=== PATIENT | male | born 1935 | race Two or more races ===

== ENCOUNTER 2018-06-08 17:09 | Inpatient (IN) | payer MEDICARE, OTHER ==
[~2018-06-08] VITALS: Ht 172.7 cm; Wt 69.0 kg
[2018-06-08 17:15] VITALS: BP 89/46
--- NOTE | 2018-06-08 17:15 | NUR ---
ED Nurse Note: PT BROUGHT IN BY AMBULANCE FROM [facility] DUE TO INCREASING ALOC X TODAY. PT IS AOX2 - ORIENTED TO SELF AND PLACE BUT IS NOT ORIENTED TO TIME OR SITUATION. THIS IS BASELINE PER EMS. ON ASSESSMENT, PT IS HYPOTENSIVE, BP: 74/48 AND HYPOXIC, O2 SAT: 88%. PT PLACED ON 3L O2 VIA NASAL CANNULA AND PLACED IN TRENDELENBERG POSITION. DR ZHOU AWARE. RR22 @ 94% O2 SATURATION AND BP: 89/46.
[2018-06-08] MEDS ORDERED: Sodium Chloride 2,200 ML IVLG ONE (17:30)
--- NOTE | 2018-06-08 17:50 | Emergency Room Report ---
History of Present Illness General Chief Complaint: Altered Mental Status Source: Patient, Medical Record Present Illness HPI Patient presents from nursing facility with general weakness altered mentation It is unclear the specific time onset of this change Patient does have recent discharge from recent hospitalization I spoke to the patient's primary physician who reports the patient's hemoglobin was low previously however the patient had fairly extensive GI workup Patient himself is able to be aroused opens his eyes Does appear mildly weak With sluggish response Denies any focal weakness Allergies: Coded Allergies: PHENOTHIAZINES (Verified Allergy, Unknown, lock jaw anxiety, 06/09/18) Patient History Limited by: medical condition Past Medical History: see triage record Pertinent Family History: none Reviewed Nursing Documentation: PMH: Agreed; PSxH: Agreed Nursing Documentation-PMH Past Medical History: No History, Except For Hx Gastrointestinal Problems: Yes - gastritis History Of Psychiatric Problem: Yes - Schziophrenia Review of Systems All Other Systems: negative except mentioned in HPI Physical Exam Vital Signs Date Time Temp Pulse Resp B/P (MAP) Pulse Ox O2 Delivery O2 Flow Rate FiO2 06/08/18 17:10 99.1 94 18 74/48 94 Room Air Sp02 EP Interpretation: reviewed, normal General Appearance: other - Pale Head: normocephalic, atraumatic Eyes: bilateral eye PERRL, bilateral eye EOMI ENT: hearing grossly normal, TMs + canals normal, uvula midline, dry mucus membranes Neck: full range of motion, supple, no meningismus, no bony tend Respiratory: no rhonchi, no respiratory distress, no retraction, no accessory muscle use, crackles - Bilaterally Cardiovascular #1: normal peripheral pulses, regular rate, rhythm, no edema, no gallop, no JVD, no murmur Gastrointestinal: normal bowel sounds, non tender, soft, no mass, no organomegaly, non-distended, no guarding, no hernia, no pulsatile mass, no rebound Genitourinary: no CVA tenderness Musculoskeletal: normal inspection Neurologic: responsive - Mild disorientation, art handler III-XII nml as tested, motor strength/tone normal, sensory intact Psychiatric: depressed affect Skin: warm/dry, palpation normal, other - Several areas of bruising in the upper arm Lymphatic: normal inspection, no adenopathy Procedures Critical Care Time Critical Care Time 50 minutes for multiple re-evaluations initial critical status hypotensive presentation requiring repeat evaluation not including any procedural time Medical Decision Making Diagnostic Impression: Primary Impression: Sepsis Additional Impression: Altered mental status ER Course Multiple differentials and consideration Patient presents somewhat altered and hypotensive on initial presentation Broad-spectrum blood work and workup is initiated Speaking to the patient's primary physician who is here in the emergency room as well Patient has had fairly extensive recent workup Hemoccult exam by primary was also negative Patient also given prostration antibiotics given the white blood cell count Consideration for colitis/C. difficile is made, however we do not have any history of diarrhea Bowel ischemia is considered Patient admitted to higher level of care for continued evaluation Labs Test 06/08/18 18:05 06/08/18 20:15 White Blood Count 30.1 K/UL (4.8-10.8) Red Blood Count 3.08 M/UL (4.70-6.10) Hemoglobin 7.8 G/DL (14.2-18.0) Hematocrit 25.1 % (42.0-52.0) Mean Corpuscular Volume 82 FL (80-99) Mean Corpuscular Hemoglobin 25.4 PG (27.0-31.0) Mean Corpuscular Hemoglobin Concent 31.1 G/DL (32.0-36.0) Red Cell Distribution Width 16.6 % (11.6-14.8) Platelet Count 572 K/UL (150-450) Mean Platelet Volume 5.0 FL (6.5-10.1) Neutrophils (%) (Auto) % (45.0-75.0) Lymphocytes (%) (Auto) % (20.0-45.0) Monocytes (%) (Auto) % (1.0-10.0) Eosinophils (%) (Auto) % (0.0-3.0) Basophils (%) (Auto) % (0.0-2.0) Differential Total Cells Counted 100 Neutrophils % (Manual) 89 % (45-75) Lymphocytes % (Manual) 6 % (20-45) Monocytes % (Manual) 5 % (1-10) Eosinophils % (Manual) 0 % (0-3) Basophils % (Manual) 0 % (0-2) Band Neutrophils 0 % (0-8) Platelet Estimate Increased Platelet Morphology Normal Hypochromasia 2+ Anisocytosis 2+ Prothrombin Time 12.0 SEC (9.30-11.50) Prothromb Time International Ratio 1.1 (0.9-1.1) Urine Color Yellow Urine Appearance Clear Urine pH 6 (4.5-8.0) Urine Specific [place] 1.010 (1.005-1.035) Urine Protein 2+ (NEGATIVE) Urine Glucose (UA) Negative (NEGATIVE) Urine Ketones Negative (NEGATIVE) Urine Blood 1+ (NEGATIVE) Urine Nitrite Negative (NEGATIVE) Urine Bilirubin Negative (NEGATIVE) Urine Urobilinogen Normal MG/DL (0.0-1.0) Urine Leukocyte Esterase 1+ (NEGATIVE) Urine RBC 2-4 /HPF (0 - 0) Urine WBC 2-4 /HPF (0 - 0) Urine Squamous Epithelial Cells None /LPF (NONE/OCC) Urine Bacteria Few /HPF (NONE) Sodium Level 134 MMOL/L (136-145) Potassium Level 4.3 MMOL/L (3.5-5.1) Chloride Level 98 MMOL/L (98-107) Carbon Dioxide Level 23 MMOL/L (21-32) Anion Gap 13 mmol/L (5-15) Blood Urea Nitrogen 19 mg/dL (7-18) Creatinine 1.8 MG/DL (0.55-1.30) Estimat Glomerular Filtration Rate mL/min (>60) Glucose Level 106 MG/DL (74-106) Lactic Acid Level 3.30 mmol/L (0.4-2.0) 0.90 mmol/L (0.66-2.22) Calcium Level 9.1 MG/DL (8.5-10.1) Total Bilirubin 0.8 MG/DL (0.2-1.0) Aspartate Amino Transf (AST/SGOT) 99 U/L (15-37) Alanine Aminotransferase (ALT/SGPT) 109 U/L (12-78) Alkaline Phosphatase 164 U/L (46-116) Total Creatine Kinase 123 U/L (26-308) Creatine Kinase MB 2.0 NG/ML (0.0-3.6) Creatine Kinase MB Relative Index 1.6 Troponin I 0.003 ng/mL (0.000-0.056) Pro-B-Type Natriuretic Peptide 1942 pg/mL (0-125) Total Protein 7.3 G/DL (6.4-8.2) Albumin 2.1 G/DL (3.4-5.0) Globulin 5.2 g/dL Albumin/Globulin Ratio 0.4 (1.0-2.7) Lipase 76 U/L (73-393) EKG Diagnostic Results Rate: normal Rhythm: NSR ST Segments: no acute changes Rhythm Strip Diag. Results EP Interpretation: yes Rate: 80 Rhythm: NSR, no PVC's, no ectopy Chest X-Ray Diagnostic Results Chest X-Ray Diagnostic Results : Chest X-Ray Ordered: Yes # of Views/Limited/Complete: 1 View Indication: Shortness of Breath EP Interpretation: Yes Interpretation: no effusion, no pneumothorax, other - Right lower lobe patchy markings Impression: Other - Right lower lobe patchy markings Electronically Signed by: Elsi Luna DO CT/MRI/US Diagnostic Results CT/MRI/US Diagnostic Results : Impression CT head no acute disease Last Vital Signs Date Time Temp Pulse Resp B/P (MAP) Pulse Ox O2 Delivery O2 Flow Rate FiO2 06/08/18 17:10 99.1 94 18 74/48 94 Room Air Status: improved Disposition: ADMITTED INPATIENT Condition: Critical Elsi Luna DO Jun 08, 2018 17:50
--- NOTE | 2018-06-08 18:07 | Diagnostic Imaging Report ---
EXAM: XR Chest, 1 View CLINICAL HISTORY: CP TECHNIQUE: Frontal view of the chest. COMPARISON: No relevant prior studies available. FINDINGS: Lungs: Reduced lung volumes with large cardiomediastinal silhouette and accentuation of bronchovascular markings. Patchy nodular opacities in the right upper and left lower lung colby. Pleural space: Unremarkable. No pneumothorax. Heart: See above. Mediastinum: See above. Bones/joints: No acute fracture. IMPRESSION: Reduced lung volumes with large cardiomediastinal silhouette and accentuation of bronchovascular markings. Patchy nodular opacities in the right upper and left lower lung colby.
[2018-06-08 18:15] VITALS: BP 102/65
[2018-06-08 18:30] LABS: ANION GAP 13 mmol/L (5-15); BLOOD UREA NITROGEN 19 mg/dL (7-18); CALCIUM 9.1 MG/DL (8.5-10.1); CARBON DIOXIDE 23 MMOL/L (21-32); CHLORIDE 98 MMOL/L (98-107); CREATININE 1.8 MG/DL (0.55-1.30); POTASSIUM 4.3 MMOL/L (3.5-5.1); SODIUM 134 MMOL/L (136-145)
[2018-06-08 18:35] LABS: APPEARANCE,URINE CLEAR; BILIRUBIN, URINE NEGATIVE (NEGATIVE); GLUCOSE, URINE (UA) NEGATIVE (NEGATIVE); KETONES,URINE NEGATIVE (NEGATIVE); LEUKOCYTE ESTERASE ,URINE 1+ (NEGATIVE); NITRITE,URINE NEGATIVE (NEGATIVE); PH,URINE 6 (4.5-8.0); PROTEIN,URINE 2+ (NEGATIVE); UROBILINOGEN,URINE NORMAL MG/DL (0.0-1.0)
[2018-06-08 18:42] LABS: ALANINE AMINOTRANSFERASE 109 U/L (12-78); ALBUMIN 2.1 G/DL (3.4-5.0); ALBUMIN/GLOBULIN RATIO 0.4 (1.0-2.7); ALKALINE PHOSPHATASE 164 U/L (46-116); ASPARTATE AMINO TRANSFERASE 99 U/L (15-37); BILIRUBIN,TOTAL 0.8 MG/DL (0.2-1.0); COLOR,URINE YELLOW; CREATINE KINASE 123 U/L (26-308)
[2018-06-08 18:45] LABS: HEMATOCRIT 25.1 % (42.0-52.0); HEMOGLOBIN 7.8 G/DL (14.2-18.0); MEAN CORPUSCULAR VOLUME 82 FL (80-99); PLATELET COUNT 572 K/UL (150-450); RED BLOOD COUNT 3.08 M/UL (4.70-6.10); RED CELL DISTRIBUTION WIDTH 16.6 % (11.6-14.8)
[2018-06-08 18:49] LABS: WHITE BLOOD COUNT 30.1 K/UL (4.8-10.8)
--- NOTE | 2018-06-08 18:54 | Diagnostic Imaging Report ---
EXAM: CT Head Without Intravenous Contrast CLINICAL HISTORY: AMS TECHNIQUE: Axial computed tomography images of the head/brain without intravenous contrast. CTDI is 70.38+0.15 mGy and DLP is 1495 mGy-cm. One or more of the following dose reduction techniques were used: automated exposure control, adjustment of the mA and/or kV according to patient size, use of iterative reconstruction technique. COMPARISON: No relevant prior studies available. FINDINGS: Brain: No hemorrhage. No edema. Involutional changes with small vessel disease. Ventricles: No ventriculomegaly. Bones/joints: No acute fracture. Soft tissues: Unremarkable. Sinuses: No acute sinusitis. Mastoid air cells: No mastoid effusion. Cataract surgery. IMPRESSION: No acute intracranial process.
[2018-06-08] MEDS ORDERED: Vancomycin 1.5gm Premix 275 ML IVPB ONE (19:00)
[2018-06-08] MEDS ORDERED: Piperacillin/Tazobactam 3.375 GM in NS 110 ML IVPB ONE (19:00)
[2018-06-08] MEDS ORDERED: Vancomycin 1.5gm/D5W 275ml IVPB ONE ×2 (19:00)
[2018-06-08 19:11] LABS: INR 1.1 (0.9-1.1)
--- NOTE | 2018-06-08 19:12 | NUR ---
ED Nurse Note: REPORT GIVEN TO JODI DALLAS. ABDIAZIZ PULLED FROM [facility] AND ENDORSED TO JODI DALLAS.
[2018-06-08 20:32] VITALS: BP 95/59
[2018-06-08] MEDS ORDERED: Acetaminophen 650 MG SUPP RECTAL PRN ×2 (21:15)
[2018-06-08] MEDS ORDERED: Miralax 17gm pkt ORAL PRN (21:15)
[2018-06-08 21:18] VITALS: BP 114/65
[2018-06-08] MEDS: ZyPREXA Zydis 10mg tab ORAL SCH (21:30)
[2018-06-09] VITALS (19 sets, daily range): BP systolic 95–134; BP diastolic 56–84
[2018-06-09] MEDS ORDERED: TRIAMCINOLONE A15 G2 TP (02:48)
[2018-06-09] MEDS ORDERED: SINGULAIR10 MG ORAL (02:48)
[2018-06-09] MEDS ORDERED: ATORVASTATIN CA80 MG ORAL (02:48)
[2018-06-09] MEDS ORDERED: OMEPRAZOLE40 M1 ORAL (02:48)
[2018-06-09] MEDS ORDERED: FLUOXETINE HCL40 MG ORAL (02:48)
[2018-06-09] MEDS ORDERED: ZYPREXA10 MG ORAL (02:48)
[2018-06-09] MEDS ORDERED: CLOTRIMAZOLE15 GM TOPIC (02:48)
[2018-06-09] MEDS ORDERED: MINTOX SUSPENS355 ML PO (02:48)
[2018-06-09] MEDS ORDERED: VENLAFAXINE HCL75 MG ORAL (02:48)
[2018-06-09] MEDS ORDERED: DAILY VITE1 EACH ORAL (02:48)
[2018-06-09] MEDS ORDERED: GABAPENTIN100 MG ORAL (02:48)
[2018-06-09] MEDS ORDERED: VENLAFAXINE HC150 MG ORAL (02:48)
[2018-06-09] MEDS ORDERED: MIRTAZAPINE15 M3 ORAL (02:48)
[2018-06-09] MEDS ORDERED: DOCUSATE SODIU250 MG ORAL (02:48)
[2018-06-09] MEDS ORDERED: BANOPHEN25 MG PO (02:48)
[2018-06-09] MEDS ORDERED: ACETAMINOPHEN325 M1 ORAL (02:48)
[2018-06-09] MEDS ORDERED: BUSPIRONE HCL15 MG ORAL (02:48)
[2018-06-09] MEDS ORDERED: TUSSIN DM CLEA118 M1 PO (02:48)
--- NOTE | 2018-06-09 03:45 | NUR ---
ED Nurse Note: pt was admitted to hospital, pt transfered to icu 246 J, report given to Erich muñoz, pt transfered with monitor via tex on a stable vs.
[2018-06-09] MEDS: D5 1/2NS w/KCl 20mEq 1,000 ML IV SCH ×6 (03:53→22:09)
--- NOTE | 2018-06-09 04:00 | NUR ---
NURSE NOTES: Received report from [facility] ED RN. Patient is alert and oriented but forgetful at time. Patient is hard of hearing both hears. Patient noted to have R and L 20G AC IV lines. D51/2 NS was hung per orders at 175ml/hr. Patient noted to have scab on right knee from previous fall as patient stated. Patient is able to self reposition. HR is 78 Sr, 134/68, SpO2 at 97%, on NC 2L, RR 16. temperature 98.4F. NAD at this time. Condom catheter placed.
--- NOTE | 2018-06-09 05:00 | NUR ---
NURSE NOTES: Patient in bed, remains sleeping, vitals are stable, bed in lowest position and call light within reach.
--- NOTE | 2018-06-09 05:00 | Consultation ---
DATE OF CONSULTATION: 06/08/2018 CARDIOLOGY CONSULTATION CONSULTING PHYSICIAN: Fer Hernandez M.D. REQUESTING PHYSICIAN: Terry Short M.D. REASON FOR CONSULTATION: Shock. HISTORY OF PRESENT ILLNESS: This is an 83-year-old male, who resides at a correction facility and was transported here for evaluation of altered mentation, described as general malaise, weakness, and withdrawn state. The patient was recently hospitalized. He apparently has been recovering at a correction facility. He recently had a GI workup for anemia. He has not had any complaints of chest pain, shortness of breath, nausea, vomiting, diarrhea, fevers, or chills. PAST MEDICAL HISTORY: Apparently includes gastritis, schizophrenia, and anemia. ALLERGIES: None. FAMILY HISTORY: Not known. SOCIAL HISTORY: No record of smoking, alcohol, or substance abuse. MEDICATIONS: Reviewed and reconciled. REVIEW OF SYSTEMS: Not obtainable. PHYSICAL EXAMINATION: VITAL SIGNS: Temperature 99.1, blood pressure 74/48, heart rate 94, respiratory rate 18, and oxygen saturation 94% on room air. HEENT: Mild temporal wasting. Dry mucous membranes. NECK: Supple. Jugular venous pressure normal. No accessory muscle use. LUNGS: Clear. CARDIAC: Regular rhythm and rate. Normal S1 and S2 with a fourth heart sound. ABDOMEN: Soft. No focal tenderness, guarding, or rebound. No ascites. EXTREMITIES: No clubbing or cyanosis. No edema. There is some bruising on the upper extremities. NEUROLOGIC: Nonfocal. LABORATORY DATA: Sodium 134, potassium 4.3, bicarbonate 23, BUN 19, and creatinine 1.8. Lactic acid 3.3. AST and ALT 99 and 109 respectively and alkaline phosphatase 164. Pro-natriuretic peptide 1942. Albumin 2.1. White count is 30, hemoglobin 7.8, and platelets 572,000. EKG reviewed, sinus rhythm with no acute ST-T wave changes. Chest x-ray reveals nodular densities. No edema. IMPRESSION: 1. Shock. 2. Sepsis. 3. Hypovolemia. 4. Lactic acidosis 5. Anemia. 6. Severe leukocytosis. 7. Elevated troponin level likely reflecting right-sided filling pressures that are elevated. 8. Probable pneumonia. 9. Transaminitis. 10. Possible acute hepatobiliary process. CONDITION: Critical. PROGNOSIS: Guarded. PLAN: 1. ICU care. 2. Volume resuscitation. 3. Broad-spectrum antibiotics. 4. Serial lactic acid levels. 5. No diuresis indicated. 6. Check cortisol and thyroid function. 7. Serial hemoglobin, transfuse if less than 7.5 g. 8. Imaging of the hepatobiliary tract. 9. NPO for now. 10. Avoid pressors unless fails to respond to volume resuscitation with IV fluids. 11. DVT and stress ulcer prophylaxis. Fer Hernandez M.D. DR: KRISTOFER JOB#: [id number] CC:
--- NOTE | 2018-06-09 05:15 | History and Physical Report ---
DATE OF ADMISSION: 06/08/2018 NOTE: "POOR AUDIO QUALITY" CHIEF COMPLAINT AND REASON FOR HOSPITALIZATION: The patient is an 83-year-old man, admitted with hypotension, possible septic shock. HISTORY OF PRESENT ILLNESS: The patient is an 83-year-old gentleman with history of schizophrenia. He was hospitalized from 05/28/2018 through 06/05/2018 at [facility], found to have UTI and E. coli bacteremia sensitive to most antibiotics. He received a course of antibiotics in the hospital and was discharged back to his assisted living facility with Keflex. 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 He had iron-deficiency anemia and left the hospital with hemoglobin of 8.2. He had prolonged leukocytosis and his white count was about 18,000 when he left [facility], but he was on appropriate antibiotics. There was also a CT scan finding of some ground-glass for pneumonia. The patient had no shortness of breath or productive sputum. He was seen by Physical Therapy at [facility] and was walking with a walker. I was called today that he was feeling weaker and had again fallen without injury and his blood pressure fell to 85 systolic at his assisted living facility and he was sent to the emergency room. On arrival to the emergency room, his blood pressure was approximately 75 systolic. PAST SURGICAL HISTORY: Surgeries for pneumothorax and left ankle fracture years ago. MEDICATIONS: Include Keflex 500 mg 4 times a day, BuSpar 15 mg b.i.d., Daily-Sameer one daily, DSS 250 three times a day, Effexor XR 225 mg daily, fluoxetine 60 mg daily, gabapentin 300 mg 4 times a day, potassium 10 mEq 2 tablets daily, Lipitor 80 mg daily which I believe has been discontinued, montelukast 10 mg daily, olanzapine 10 mg b.i.d. and 20 mg at bedtime, omeprazole 40 mg daily, Remeron 15 mg daily, triamcinolone cream p.r.n., Robitussin p.r.n., and Maalox p.r.n. ALLERGIES: Phenothiazine. HABITS: He smoked many years ago and quit. SYSTEM REVIEW: HEENT: Vision and hearing is good. ENDOCRINE: Borderline glucose intolerance, not requiring medications. No thyroid disease. PULMONARY: There is some COPD and dry cough. CARDIAC: No angina, VA, or palpitations. He had hyperlipidemia in the past, but his statins were discontinued due to elevated liver enzymes. GASTROINTESTINAL: He has had intermittent heartburn and endoscopy as above. Heartburn has been better. He has not had any hematochezia or melena, but he did have iron-deficiency anemia. He had elevated liver enzymes several months ago that resolved and again elevated during his course at [facility]. He had negative MRCP and hepatobiliary scan was also negative. He never had abdominal pain. GENITOURINARY: No dysuria or hematuria. He has had to wear a diaper recently for neurogenic bladder and incontinence. NEUROLOGIC: No CVA, syncope, or seizures. MUSCULOSKELETAL: He has used a cane and a walker lately. He had low back pain and had evidence of discogenic disease on the MRI at [facility] done recently, but no evidence of bony tumors or malignancy. PHYSICAL EXAMINATION: GENERAL: The patient was seen in the emergency room. He was in Trendelenburg when I arrived. VITAL SIGNS: His blood pressure was 75 to 85 systolic. HEENT: Oral mucosa is slightly dry. Sclerae nonicteric. Ocular motions intact in all directions. NECK: No adenopathy. LUNGS: Clear. HEART: Regular rhythm. No murmur. ABDOMEN: Soft. I am unable to feel liver or spleen. No tenderness. EXTREMITIES: No edema, cyanosis, or clubbing. SKIN: There is a healing abrasion on the right leg. NEUROLOGIC: He is alert and responsive. Ocular motions intact in all directions. Smile is symmetric. Tongue is midline. He moves all extremities. LABORATORY DATA: Labs were reviewed. IMPRESSION: 1. Recent E. coli sepsis and possible recurrent bacteremia. 2. Elevated liver enzymes. 3. Septic shock and hypovolemic shock. 4. Severe leukocytosis. 5. Iron-deficiency anemia. 6. History of hiatal hernia. 7. Elevated liver enzymes, possibly common bile duct stone, although previous studies are negative. 8. History of schizophrenia. 9. Gait disorder. 10. Recurrent falls. PLAN: The patient will be watched in the ICU, given IV hydration and broad-spectrum antibiotics. Reassess for the above medical problem. His condition is complex. Detailed orders have been given. ICU orders given. Terry Short M.D. DR: Cyndy JOB#: [id number] CC:
--- NOTE | 2018-06-09 06:00 | NUR ---
NURSE NOTES: Patient repositioned and labs drawn and sent. Patient had episode where HR became bradycardic in the 40s and 50w but then went back up to Sinus Tach in the 110s. Pressors have been titrated down throughout shift with success and MAP has remained above 60. Addendum: 06/09/18 at 0725 by DAYANA MCCARTY RN NURSE NOTES: DISREGARD THIS NOTED, ENTERED IN ERROR.
--- NOTE | 2018-06-09 06:01 | NUR ---
NURSE NOTES Patient sleeping, NAD, vitals stable, will continue to monitor.
--- NOTE | 2018-06-09 08:03 | NUR ---
NURSE NOTES: Report received from Daniele Vázquez RN.Pt still asleep ,eyes easilky opens with verbal command denies any c/o of sob, no signs of pain or discomfort,SR on the monitor,pt with condom cath draining yellow urine,verbalized feeling constipated,wanted to open his bowels,bed guo provided ,iv sites x2 LAC and RAC with IVF running D5 1/4 NS+ 20 meq KCL at 175ml/hr,,skin warm and dry SR up x2 HOB elevated bed lock in lowest position will continue with plans of care.
[2018-06-09] MEDS ORDERED: Heparin 5000 units/ml inj SUBQ SCH (09:00)
[2018-06-09] MEDS ORDERED: Venlafaxine XR 75mg cap ORAL SCH (09:00)
[2018-06-09] MEDS ORDERED: Docusate 100mg cap ORAL SCH (09:00)
[2018-06-09] MEDS: Docusate 250mg cap ORAL SCH ×2 (09:23→17:36)
[2018-06-09] MEDS: ZyPREXA Zydis 10mg tab ORAL SCH ×2 (10:04→17:36)
--- NOTE | 2018-06-09 10:11 | NUR ---
NURSE NOTES: Dr Short at bedside,seen pt,updated by re pt's status.
--- NOTE | 2018-06-09 10:19 | Diagnostic Imaging Report ---
EXAM: XR Chest, 1 View CLINICAL HISTORY: COPD TECHNIQUE: Frontal view of the chest. COMPARISON: Chest x-rays dated 06/08/18 FINDINGS: Lungs: Improved pulmonary aeration compared to the prior chest x-ray. Subsegmental atelectasis in bilateral lung bases. Pleural space: Unremarkable. The costophrenic angles are sharp. No visible pneumothorax. Heart: Unremarkable. No cardiomegaly. Mediastinum: Unremarkable. Bones/joints: Mild degenerative changes about the visualized spine and shoulder joints. Vasculature: Prominent ectatic aorta and cannot exclude an ascending aortic aneurysm. Tubes, lines and devices: Telemetry leads overlie the thorax. IMPRESSION: 1. Improved pulmonary aeration compared to the prior chest x-ray. 2. Subsegmental atelectasis in bilateral lung bases. 3. Prominent ectatic aorta and cannot exclude an ascending aortic aneurysm.
[2018-06-09 11:21] LABS: HEMATOCRIT 23.5 % (42.0-52.0); HEMOGLOBIN 7.6 G/DL (14.2-18.0); MEAN CORPUSCULAR VOLUME 81 FL (80-99); PLATELET COUNT 538 K/UL (150-450); RED BLOOD COUNT 2.91 M/UL (4.70-6.10); RED CELL DISTRIBUTION WIDTH 17.3 % (11.6-14.8); WHITE BLOOD COUNT 20.1 K/UL (4.8-10.8)
[2018-06-09 11:52] LABS: ALANINE AMINOTRANSFERASE 109 U/L (12-78); ALBUMIN 1.8 G/DL (3.4-5.0); ALBUMIN/GLOBULIN RATIO 0.4 (1.0-2.7); ALKALINE PHOSPHATASE 168 U/L (46-116); ANION GAP 8 mmol/L (5-15); ASPARTATE AMINO TRANSFERASE 85 U/L (15-37); BILIRUBIN,TOTAL 0.5 MG/DL (0.2-1.0); BLOOD UREA NITROGEN 14 mg/dL (7-18); CALCIUM 8.2 MG/DL (8.5-10.1); CARBON DIOXIDE 24 MMOL/L (21-32); CHLORIDE 104 MMOL/L (98-107); CREATINE KINASE 72 U/L (26-308); CREATININE 1.2 MG/DL (0.55-1.30); PHOSPHORUS 2.9 MG/DL (2.5-4.9); SODIUM 136 MMOL/L (136-145)
--- NOTE | 2018-06-09 13:51 | NUR ---
NURSE NOTES: PT> here at bedside,pt able to stand up with minimal assist.activity tolerated well.
--- NOTE | 2018-06-09 14:36 | General Progress Note ---
Assessment/Plan Problem List: (1) Gait abnormality ICD Codes: R26.9 - Unspecified abnormalities of gait and mobility SNOMED: 33266061 (2) Dehydration ICD Codes: E86.0 - Dehydration SNOMED: 99265231 (3) BENJAMIN (acute kidney injury) ICD Codes: N17.9 - Acute kidney failure, unspecified SNOMED: 07269165 (4) Iron deficiency anemia ICD Codes: D50.9 - Iron deficiency anemia, unspecified SNOMED: 84580622 (5) Pyelonephritis ICD Codes: N12 - Tubulo-interstitial nephritis, not specified as acute or chronic SNOMED: 60635539 (6) Septic shock ICD Codes: A41.9 - Sepsis, unspecified organism; R65.21 - Severe sepsis with septic shock SNOMED: 09950663 (7) Sepsis ICD Codes: A41.9 - Sepsis, unspecified organism SNOMED: 27925972 (8) Abnormal LFTs ICD Codes: R94.5 - Abnormal results of liver function studies SNOMED: 237490889 Assessment/Plan pyelo treated recently at [facility] ee coli bacteremia. Elevated lft with normal mrcp and hida at [facility], concern for cbd stone vs recurrent pyelo. hypotension resoving with fluids. Anemia and transfusion indicated. Mild wheeze and atelectasis, hhn ordered. icu orders 40 min icu care Subjective Constitutional: Reports: weakness HEENT: Reports: no symptoms Cardiovascular: Reports: no symptoms Respiratory: Reports: cough Gastrointestinal/Abdominal: Reports: no symptoms Genitourinary: Reports: no symptoms Neurologic/Psychiatric: Reports: no symptoms Hematologic/Lymphatic: Reports: anemia Allergies: Coded Allergies: PHENOTHIAZINES (Verified Allergy, Unknown, lock jaw anxiety, 06/09/18) Objective Last 24 Hour Vital Signs Date Time Temp Pulse Resp B/P (MAP) Pulse Ox O2 Delivery O2 Flow Rate FiO2 06/09/18 12:00 Nasal Cannula 2.0 06/09/18 12:00 97.7 73 17 98/59 (72) 97 06/09/18 11:00 73 16 109/63 (78) 97 06/09/18 10:00 76 19 126/67 (86) 99 06/09/18 09:00 74 19 112/64 (80) 97 06/09/18 08:00 97.6 70 16 95/58 (70) 99 06/09/18 08:00 75 06/09/18 08:00 Nasal Cannula 2.0 06/09/18 07:00 68 16 110/84 (93) 98 06/09/18 06:00 66 16 96/56 (69) 96 06/09/18 05:00 70 16 112/66 (81) 97 06/09/18 04:23 75 06/09/18 04:00 Nasal Cannula 2.0 06/09/18 04:00 98.4 76 19 134/69 (90) 96 06/09/18 03:45 98.6 71 17 128/57 93 Nasal Cannula 2.0 71 06/09/18 03:44 Nasal Cannula 2.0 06/09/18 03:33 71 17 128/57 93 Nasal Cannula 2.0 71 06/09/18 02:00 68 16 126/63 95 Nasal Cannula 2.0 64 06/09/18 00:06 64 13 120/63 95 Nasal Cannula 2.0 64 06/08/18 21:18 72 17 114/65 93 Nasal Cannula 3.0 72 06/08/18 20:32 76 13 95/59 95 Nasal Cannula 3.0 06/08/18 18:15 98.6 81 21 102/65 97 Nasal Cannula 3.0 06/08/18 17:15 93 22 Nasal Cannula 3.0 06/08/18 17:15 98.9 93 22 89/46 94 Nasal Cannula 3.0 06/08/18 17:10 99.1 94 18 74/48 94 Room Air Intake and Output 06/08/18 06/09/18 19:00 07:00 Intake Total 3270 ml Output Total 600 ml Balance 2670 ml IV Total 3270 ml Output Urine Total 600 ml # Voids 1 1 Laboratory Tests 06/08/18 18:05: White Blood Count 30.1*H, Red Blood Count 3.08L, Hemoglobin 7.8L, Hematocrit 25.1L, Mean Corpuscular Volume 82, Mean Corpuscular Hemoglobin 25.4L, Mean Corpuscular Hemoglobin Concent 31.1L, Red Cell Distribution Width 16.6H, Platelet Count 572H, Mean Platelet Volume 5.0L, Neutrophils (%) (Auto) , Lymphocytes (%) (Auto) , Monocytes (%) (Auto) , Eosinophils (%) (Auto) , Basophils (%) (Auto) , Differential Total Cells Counted 100, Neutrophils % ( Manual) 89H, Lymphocytes % (Manual) 6L, Monocytes % (Manual) 5, Eosinophils % ( Manual) 0, Basophils % (Manual) 0, Band Neutrophils 0, Platelet Estimate IncreasedH, Platelet Morphology Normal, Hypochromasia 2+, Anisocytosis 2+, Prothrombin Time 12.0H, Prothromb Time International Ratio 1.1, Urine Color Yellow, Urine Appearance Clear, Urine pH 6, Urine Specific [place] 1.010, Urine Protein 2+H, Urine Glucose (UA) Negative, Urine Ketones Negative, Urine Blood 1+ H, Urine Nitrite Negative, Urine Bilirubin Negative, Urine Urobilinogen Normal, Urine Leukocyte Esterase 1+H, Urine RBC 2-4H, Urine WBC 2-4, Urine Squamous Epithelial Cells None, Urine Bacteria Few, Sodium Level 134L, Potassium Level 4.3, Chloride Level 98, Carbon Dioxide Level 23, Anion Gap 13, Blood Urea Nitrogen 19H, Creatinine 1.8H, Estimat Glomerular Filtration Rate , Glucose Level 106, Lactic Acid Level 3.30H, Calcium Level 9.1, Total Bilirubin 0.8, Aspartate Amino Transf (AST/SGOT) 99H, Alanine Aminotransferase (ALT/SGPT) 109H , Alkaline Phosphatase 164H, Total Creatine Kinase 123, Creatine Kinase MB 2.0, Creatine Kinase MB Relative Index 1.6, Troponin I 0.003, Pro-B-Type Natriuretic Peptide 1942H, Total Protein 7.3, Albumin 2.1L, Globulin 5.2, Albumin/Globulin Ratio 0.4L, Lipase 76 06/08/18 20:15: Lactic Acid Level 0.90 06/09/18 10:38: White Blood Count 20.1H, Red Blood Count 2.91L, Hemoglobin 7.6L, Hematocrit 23.5L, Mean Corpuscular Volume 81, Mean Corpuscular Hemoglobin 26.1L, Mean Corpuscular Hemoglobin Concent 32.2, Red Cell Distribution Width 17.3H, Platelet Count 538H, Mean Platelet Volume 5.6L, Neutrophils (%) (Auto) , Lymphocytes (%) (Auto) , Monocytes (%) (Auto) , Eosinophils (%) (Auto) , Basophils (%) (Auto) , Differential Total Cells Counted 100, Neutrophils % ( Manual) 90H, Lymphocytes % (Manual) 3L, Monocytes % (Manual) 7, Eosinophils % ( Manual) 0, Basophils % (Manual) 0, Band Neutrophils 0, Platelet Estimate IncreasedH, Platelet Morphology Normal, Hypochromasia 1+, Anisocytosis 1+, Sodium Level 136, Potassium Level 4.0, Chloride Level 104, Carbon Dioxide Level 24, Anion Gap 8, Blood Urea Nitrogen 14, Creatinine 1.2, Estimat Glomerular Filtration Rate , Glucose Level 94, Calcium Level 8.2L, Total Bilirubin 0.5, Aspartate Amino Transf (AST/SGOT) 85H, Alanine Aminotransferase (ALT/SGPT) 109H , Alkaline Phosphatase 168H, Total Creatine Kinase 72, Troponin I 0.000, Total Protein 6.5, Albumin 1.8L, Globulin 4.7, Albumin/Globulin Ratio 0.4L, Lipase 74 , Phosphorus Level 2.9 Height (Feet): 5 Height (Inches): 8.00 Weight (Pounds): 168 General Appearance: no apparent distress, alert EENT: normal ENT inspection Neck: normal alignment Cardiovascular: normal rate, regular rhythm Respiratory/Chest: rhonchi - bilaterally Abdomen: non tender, soft Genitourinary/Rectal: normal genital exam 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
--- NOTE | 2018-06-09 15:00 | NUR ---
NURSE NOTES: Dr Short back again at bedside with orders to transfuse 2 units PRBC ,transfer pt to [facility], and check voiding bladder residual,done 348 ml, showed Dr Short voiding residual,orered to get pt OOB and to chair.
[2018-06-09] MEDS: Albuterol/Ipratropium 3ml neb HHN SCH ×3 (15:13→23:04)
--- NOTE | 2018-06-09 15:27 | NUR ---
PT Note PT ray completed, tx initiated. Patient needs PT services to increase his muscle strength and balance to improve his functional mobility to PLF. Addendum: 06/09/18 at 1528 by LOLI VELEZ PT Amended: Links added.
--- NOTE | 2018-06-09 18:00 | NUR ---
NURSE NOTES: Called family member Sandra Palmer for consent for blood transfusion,leave message on the answering machine.
--- NOTE | 2018-06-09 19:15 | NUR ---
NURSE NOTES: Received patient from JODI Panchal. Patient AO3 in bed with NAD; episodes of confusion. NC in place; 2L. IV flushed and patent. Right knee abrasion noted. Bed at lowest position; bed alarm on; side rails raised x3; call light within reach. Oriented to room and unit. Belongings list completed with transferring RN.
--- NOTE | 2018-06-09 19:15 | NUR ---
TRANSFER TO FLOOR: Patient transferred to SDU , per bed,awake,alert noted no resp distress . Report given to Caesar Ludwig RN. Belongings and medications given to receiving RN. . Family and or S/O informed of transfer.
[2018-06-09] MEDS ORDERED: Miralax 17gm pkt ORAL PRN (19:30)
[2018-06-09] MEDS ORDERED: Vancomycin 750mg/NS 275ml IVPB SCH ×2 (20:00)
[2018-06-09] MEDS ORDERED: Vancomycin 750 MG in NS 275 ML IVPB SCH (20:00)
[2018-06-09] MEDS ORDERED: Acetaminophen 650 MG SUPP RECTAL PRN ×2 (20:00)
--- NOTE | 2018-06-09 20:25 | NUR ---
NURSE NOTES: Pretransfusion vitals: 98.3, 88, 105/63. Consent signed. Initiated transfusion.
--- NOTE | 2018-06-09 20:40 | NUR ---
NURSE NOTES: Reassessed vitals 15 min into transfusion. 98.2, 92 102/65. Pt denies SOB or pain; AO4. NAD. VSS. Will continue to monitor.
[2018-06-09] MEDS: Heparin 5000 units/ml inj SUBQ SCH (22:13)
--- NOTE | 2018-06-09 22:15 | NUR ---
NURSE NOTES: Transfusion completed. 250 ml packed cells [place] infused. Vitals: 98.1, 86, 103/62. AO4. NAD. VSS. Denies pain or SOB.
--- NOTE | 2018-06-09 22:40 | NUR ---
NURSE NOTES: Pretransfusion vitals: 98.1, 86, 103/62. Consent signed. Initiated transfusion.
--- NOTE | 2018-06-09 22:55 | NUR ---
NURSE NOTES: Reassessed vitals 15 min into transfusion. 97.5, 78, 106/66. Pt denies SOB or pain; AO4. NAD. VSS. Will continue to monitor.
[2018-06-10] VITALS: BP 104/62
--- NOTE | 2018-06-10 02:05 | NUR ---
NURSE NOTES: Transfusion completed. 250 ml packed cells [place] infused. Vitals: 98.4, 83, 104/62. AO4. NAD. VSS. Denies pain or SOB.
[2018-06-10] MEDS: D5 1/2NS w/KCl 20mEq 1,000 ML IV SCH ×3 (02:06→21:44)
[2018-06-10] MEDS: Albuterol/Ipratropium 3ml neb HHN SCH ×5 (03:27→19:59)
[2018-06-10 04:00] VITALS: BP 125/75
--- NOTE | 2018-06-10 06:00 | Progress Note ---
DATE: 06/09/2018 CARDIOLOGY PROGRESS NOTE SUBJECTIVE: The patient remains in the intensive care unit. He is on IV fluids, antimicrobials, and respiratory hygiene. Blood pressure parameters are improving. He has not required pressors. Recent workup at [facility] is reviewed and discussed with Dr. Short. Notably E. coli bacteremia from pyelonephritis. Liver function test elevations with normal MRCP and HIDA scan. PHYSICAL EXAMINATION: VITAL SIGNS: Blood pressure 98/51, pulse 73, respirations 17, afebrile. LUNGS: Diminished breath sounds. No wheezing. HEART: Regular rhythm and rate. Normal S1, S2. ABDOMEN: Soft. No focal tenderness. No CVA tenderness. EXTREMITIES: No edema. LABORATORY DATA: White count 20 and hemoglobin 7.6. Potassium 4, BUN 14, creatinine 1.2, bicarb 24. Lactic acid has normalized. Liver function studies remained elevated. Troponin negative. Albumin 1.8. IMPRESSION: 1. Sepsis with shock, improving. 2. Severe protein-calorie malnutrition. 3. Transaminitis. 4. Acute myocardial ischemia. 5. Lactic acidosis, resolved. PLAN: 1. Avoiding pressors. 2. Continuing IV fluid hydration, broad-spectrum antimicrobials. 3. Monitor liver function studies. 4. Further imaging to be addressed by primary care physician. Fer Hernandez M.D. : MARVEL JOB#: [id number] CC:
--- NOTE | 2018-06-10 06:51 | NUR ---
NURSE NOTES: Lab called regarding urine sample. Urine collected urine; sent down to lab.
--- NOTE | 2018-06-10 07:24 | NUR ---
HAND-OFF: Report given to JODI Panchal. Patient in stable condition. Plan of care endorsed.
--- NOTE | 2018-06-10 07:25 | NUR ---
NURSE NOTES: Report received from Caesar Ludwig RN.Pt awake,alert sitting up on bed noted no resp distress or discomfort,SR oin the monitor,IV site to RFA and RAC intact with IVF D5 1/2 ns at 125ml/hr,skin warm and dry,SR up x2 HOB elevated,bwed lock in lowest position will continue with plans of care.
[2018-06-10 08:00] VITALS: BP 140/79
[2018-06-10 08:21] LABS: HEMATOCRIT 28.8 % (42.0-52.0); HEMOGLOBIN 9.2 G/DL (14.2-18.0); MEAN CORPUSCULAR VOLUME 82 FL (80-99); PLATELET COUNT 502 K/UL (150-450); RED BLOOD COUNT 3.51 M/UL (4.70-6.10); RED CELL DISTRIBUTION WIDTH 15.9 % (11.6-14.8); WHITE BLOOD COUNT 13.9 K/UL (4.8-10.8)
[2018-06-10 09:07] LABS: ALANINE AMINOTRANSFERASE 136 U/L (12-78); ALBUMIN 1.7 G/DL (3.4-5.0); ALBUMIN/GLOBULIN RATIO 0.4 (1.0-2.7); ALKALINE PHOSPHATASE 168 U/L (46-116); ANION GAP 10 mmol/L (5-15); ASPARTATE AMINO TRANSFERASE 117 U/L (15-37); BILIRUBIN,TOTAL 0.6 MG/DL (0.2-1.0); BLOOD UREA NITROGEN 9 mg/dL (7-18); CALCIUM 8.3 MG/DL (8.5-10.1); CARBON DIOXIDE 23 MMOL/L (21-32); CHLORIDE 103 MMOL/L (98-107); CREATININE 1.2 MG/DL (0.55-1.30); POTASSIUM 4.2 MMOL/L (3.5-5.1); SODIUM 136 MMOL/L (136-145)
[2018-06-10] MEDS: Venlafaxine XR 75mg cap ORAL SCH (09:13)
[2018-06-10] MEDS: ZyPREXA Zydis 10mg tab ORAL SCH ×2 (09:14→17:32)
[2018-06-10] MEDS: Docusate 250mg cap ORAL SCH ×2 (09:14→17:33)
[2018-06-10] MEDS: Heparin 5000 units/ml inj SUBQ SCH ×2 (09:17→21:43)
--- NOTE | 2018-06-10 09:43 | General Progress Note ---
Assessment/Plan Problem List: (1) Gait abnormality ICD Codes: R26.9 - Unspecified abnormalities of gait and mobility SNOMED: 07358720 (2) Dehydration ICD Codes: E86.0 - Dehydration SNOMED: 92042935 (3) BENJAMIN (acute kidney injury) ICD Codes: N17.9 - Acute kidney failure, unspecified SNOMED: 91378203 (4) Iron deficiency anemia ICD Codes: D50.9 - Iron deficiency anemia, unspecified SNOMED: 87497851 (5) Pyelonephritis ICD Codes: N12 - Tubulo-interstitial nephritis, not specified as acute or chronic SNOMED: 56341771 (6) Septic shock ICD Codes: A41.9 - Sepsis, unspecified organism; R65.21 - Severe sepsis with septic shock SNOMED: 45992717 (7) Sepsis ICD Codes: A41.9 - Sepsis, unspecified organism SNOMED: 81443534 (8) Abnormal LFTs ICD Codes: R94.5 - Abnormal results of liver function studies SNOMED: 434100562 Assessment/Plan pyelo treated recently at [facility] e coli bacteremia. Elevated lft with normal mrcp and hida at [facility], concern for cbd stone vs recurrent pyelo. hypotension resolving with fluids. Anemia and transfusion indicated. Mild wheeze and atelectasis, hhn ordered. bp better. low albumin and edema. Need to mobilize Subjective Constitutional: Reports: weakness HEENT: Reports: no symptoms Cardiovascular: Reports: no symptoms Respiratory: Reports: cough Gastrointestinal/Abdominal: Reports: poor appetite Genitourinary: Reports: incontinence Neurologic/Psychiatric: Reports: emotional problems Endocrine: Reports: no symptoms Hematologic/Lymphatic: Reports: anemia Allergies: Coded Allergies: PHENOTHIAZINES (Verified Allergy, Unknown, lock jaw anxiety, 06/09/18) Objective Last 24 Hour Vital Signs Date Time Temp Pulse Resp B/P (MAP) Pulse Ox O2 Delivery O2 Flow Rate FiO2 06/10/18 08:00 98.4 76 24 140/79 (99) 100 06/10/18 08:00 Nasal Cannula 2.0 06/10/18 07:00 Nasal Cannula 2.0 28 06/10/18 07:00 Nasal Cannula 2.0 28 06/10/18 07:00 84 18 Nasal Cannula 2.0 28 06/10/18 04:00 98.4 75 20 125/75 (92) 98 06/10/18 04:00 Nasal Cannula 2.0 06/10/18 04:00 75 06/10/18 03:37 86 18 100 Nasal Cannula 2.0 28 06/10/18 03:37 28 06/10/18 03:27 73 20 98 Nasal Cannula 2.0 28 06/10/18 00:00 98.8 83 20 104/62 (76) 99 06/10/18 00:00 Nasal Cannula 2.0 06/10/18 00:00 79 06/09/18 23:15 28 06/09/18 23:15 98 20 100 Nasal Cannula 2.0 28 06/09/18 23:05 84 20 96 Nasal Cannula 2.0 28 06/09/18 20:00 Nasal Cannula 2.0 06/09/18 20:00 98.3 88 24 105/63 (77) 98 06/09/18 20:00 87 06/09/18 19:20 28 06/09/18 19:20 86 25 100 Nasal Cannula 2.0 28 06/09/18 19:05 87 23 Nasal Cannula 2.0 28 06/09/18 19:02 86 23 99 Nasal Cannula 2.0 28 06/09/18 18:00 86 19 109/66 (80) 99 06/09/18 17:00 80 19 101/67 (78) 98 06/09/18 16:00 84 06/09/18 16:00 Nasal Cannula 2.0 06/09/18 16:00 98.5 84 20 105/56 (72) 98 06/09/18 15:16 85 18 Nasal Cannula 2.0 28 06/09/18 15:14 85 16 100 Nasal Cannula 2.0 28 06/09/18 15:02 81 18 100 Nasal Cannula 2.0 28 06/09/18 15:02 36 06/09/18 15:00 72 18 108/56 (73) 99 06/09/18 14:00 72 18 108/63 (78) 99 06/09/18 13:00 79 18 107/57 (74) 99 06/09/18 12:00 Nasal Cannula 2.0 06/09/18 12:00 97.7 73 17 98/59 (72) 97 06/09/18 12:00 73 06/09/18 11:00 73 16 109/63 (78) 97 06/09/18 10:00 76 19 126/67 (86) 99 Intake and Output 06/09/18 06/10/18 18:59 06:59 Intake Total 1785 ml 1375 ml Output Total 940 ml 1000 ml Balance 845 ml 375 ml Intake Oral 1310 ml IV Total 475 ml 1375 ml Output Urine Total 940 ml 1000 ml Laboratory Tests 06/09/18 10:38: White Blood Count 20.1H, Red Blood Count 2.91L, Hemoglobin 7.6L, Hematocrit 23.5L, Mean Corpuscular Volume 81, Mean Corpuscular Hemoglobin 26.1L, Mean Corpuscular Hemoglobin Concent 32.2, Red Cell Distribution Width 17.3H, Platelet Count 538H, Mean Platelet Volume 5.6L, Neutrophils (%) (Auto) , Lymphocytes (%) (Auto) , Monocytes (%) (Auto) , Eosinophils (%) (Auto) , Basophils (%) (Auto) , Differential Total Cells Counted 100, Neutrophils % ( Manual) 90H, Lymphocytes % (Manual) 3L, Monocytes % (Manual) 7, Eosinophils % ( Manual) 0, Basophils % (Manual) 0, Band Neutrophils 0, Platelet Estimate IncreasedH, Platelet Morphology Normal, Hypochromasia 1+, Anisocytosis 1+, Sodium Level 136, Potassium Level 4.0, Chloride Level 104, Carbon Dioxide Level 24, Anion Gap 8, Blood Urea Nitrogen 14, Creatinine 1.2, Estimat Glomerular Filtration Rate , Glucose Level 94, Calcium Level 8.2L, Phosphorus Level 2.9, Total Bilirubin 0.5, Aspartate Amino Transf (AST/SGOT) 85H, Alanine Aminotransferase (ALT/SGPT) 109H, Alkaline Phosphatase 168H, Total Creatine Kinase 72, Troponin I 0.000, Total Protein 6.5, Albumin 1.8L, Globulin 4.7, Albumin/Globulin Ratio 0.4L, Lipase 74 06/10/18 06:30: Urine Immunofixation [Pending] 06/10/18 07:19: White Blood Count 13.9H, Red Blood Count 3.51L, Hemoglobin 9.2L, Hematocrit 28.8L, Mean Corpuscular Volume 82, Mean Corpuscular Hemoglobin 26.1L, Mean Corpuscular Hemoglobin Concent 31.9L, Red Cell Distribution Width 15.9H, Platelet Count 502H, Mean Platelet Volume 5.6L, Neutrophils (%) (Auto) , Lymphocytes (%) (Auto) , Monocytes (%) (Auto) , Eosinophils (%) (Auto) , Basophils (%) (Auto) , Differential Total Cells Counted 100, Neutrophils % ( Manual) 84H, Lymphocytes % (Manual) 9L, Monocytes % (Manual) 7, Eosinophils % ( Manual) 0, Basophils % (Manual) 0, Band Neutrophils 0, Platelet Estimate IncreasedH, Platelet Morphology Normal, Anisocytosis 1+, Sodium Level 136, Potassium Level 4.2, Chloride Level 103, Carbon Dioxide Level 23, Anion Gap 10, Blood Urea Nitrogen 9, Creatinine 1.2, Estimat Glomerular Filtration Rate , Glucose Level 119H, Calcium Level 8.3L, Total Bilirubin 0.6, Aspartate Amino Transf (AST/SGOT) 117H, Alanine Aminotransferase (ALT/SGPT) 136H, Alkaline Phosphatase 168H, Total Protein 6.4, Albumin 1.7L, Globulin 4.7, Albumin/ Globulin Ratio 0.4L, Immunoglobulin G [Pending], Immunoglobulin A [Pending], Immunoglobulin M [Pending], Immunofixation Screen [Pending] Height (Feet): 5 Height (Inches): 8.00 Weight (Pounds): 167 General Appearance: no apparent distress, alert EENT: normal ENT inspection Neck: normal alignment Cardiovascular: normal rate, regular rhythm Respiratory/Chest: lungs clear Edema: 1+ Arm (L), 1+ Arm (R), 1+ Leg (L), 1+ Leg (R), 1+ Pedal (L), 1+ Pedal ( R), 1+ 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
--- NOTE | 2018-06-10 10:00 | NUR ---
NURSE NOTES: Dr Short at bedside,ordered Orthostatic BP.and out of bed to chair,order carried out ,Pt has a hard time,standing up,but able to manage to chair.
[2018-06-10] MEDS ORDERED: Tubing IV Secondary IV ONE (11:38)
[2018-06-10] MEDS ORDERED: NS 275ml ONE (11:38)
[2018-06-10 12:00] VITALS: BP 150/89
--- NOTE | 2018-06-10 12:00 | NUR ---
NURSE NOTES: Pt placed on NPO status for US abdomen,US Tech notifed said he will do the procedure today.
--- NOTE | 2018-06-10 12:50 | NUR ---
CASE MANAGEMENT: INITIAL REVIEW 83 YO Mary GOULD FROM [facility] CC: AMS. PMHx: GASTRITIS. SCHIZOPHRENIA. SI:ENCEPHALOPATHY. DEHYDRATION. T 99.1 HR 94 RR 18 B/P 74/48 SATS 94% ON RA WBC 13.9 GLU 119 AST 117 ALT 136 ALP 168 IS: NS BOLUS X2 ZOSYN IV X1 VANCO IV X1 PATIENT ADMITTED TO STEP DOWN UNIT 06/08/2018 @ 2009 DCP: PATIENT TO BE DISCHARGED TO HOME ONCE MEDICALLY CLEARED. PLAN OF CARE: US RUTHY ORTHO BP NPO Addendum: 06/11/18 at 2013 by Gladys Maddox CM INTERQUAL MET
--- NOTE | 2018-06-10 15:30 | Consultation ---
DATE OF CONSULTATION: 06/10/2018 CHIEF COMPLAINT: Anemia. HISTORY OF PRESENT ILLNESS: Most of the history per chart, poor historian, 83-year-old male. GI consult requested for evaluation of anemia. According to the chart, the patient was recently admitted to [facility] from 05/28/2018 to 06/05/2018, had an endoscopy and colonoscopy. Endoscopy showed evidence of hiatal hernia, salmon-colored mucosa suggestive of Alexander esophagus. Colonoscopy was normal. The patient was discharged and was readmitted again with hypotension, systolic blood pressure of 75 in the ER. PAST MEDICAL HISTORY: 1. Chronic anemia. 2. Hiatal hernia. 3. Alexander esophagus. 4. History of pneumothorax. 5. History of ankle fracture. 6. Schizophrenia. PAST SURGICAL HISTORY: History of pneumothorax surgery and left ankle surgery. ALLERGY: To phenothiazine. MEDICATIONS: Please see medication reconciliation list. SOCIAL HISTORY: The patient used to be smoker. Now denies any tobacco, alcohol, or drug abuse. Lives in the long term. REVIEW OF SYSTEMS: Limited. PHYSICAL EXAMINATION: VITAL SIGNS: Temperature is 98.4, pulse is 76, respirations 24, blood pressure is 140/79. HEENT: Normocephalic and atraumatic. Sclerae are pale. NECK: Supple. No obvious evidence of lymphadenopathy. CARDIOVASCULAR: Regular rate and rhythm. Plus S1 and S2. LUNGS: Decreased breath sounds bilaterally on the supine exam. ABDOMEN: Soft and nontender. No rebound. No guarding. No peritoneal sign. EXTREMITIES: No cyanosis. No clubbing. LABORATORY DATA: White count is 13.9, hemoglobin 9.2, admission hemoglobin 7.8, platelet count is 502. Creatinine is normal at 1.2. Liver enzymes elevated, AST of 117, ALT of 136, alkaline phosphatase of 168. ASSESSMENT: The patient is an 83-year-old male with profound anemia, abnormal liver function tests. PLAN: The patient apparently had already endoscopy and colonoscopy last month. Plan to order iron panels, CEA, stool for OB, B12, folic acid. If the stool OB comes back positive, the patient might benefit capsule endoscopy for evaluation of small intestinal bleeding, otherwise transfuse to keep hemoglobin above 7. In terms of abnormal liver function tests, can be multifactorial, possibly medication related. Plan to order abdominal ultrasound. Liver function tests repeated again for tomorrow. Hepatitis panel. We will follow. I want to thank, Dr. Short, for this kind referral. Eagle Carmichael M.D. DR: Sarah JOB#: [id number] CC: Terry Short M.D.; Fax#: [phone]
--- NOTE | 2018-06-10 15:45 | Consultation ---
DATE OF CONSULTATION: 06/10/2018 INFECTIOUS DISEASES CONSULTATION This consult is for coverage of Dr. Patel. CONSULTING PHYSICIAN: Dominik Zuluaga M.D. PRIMARY ATTENDING PHYSICIAN: Terry Short M.D. REASON FOR CONSULTATION: Sepsis. HISTORY OF PRESENT ILLNESS: The patient is an 83-year-old white male who is a custodial patient, admitted on 06/08/2018 because of weakness, malaise, altered mental status, fatigue, hypotension, first admitted to ICU and then transferred to [facility]. The patient has a recent history of hospitalization in [facility] with urinary tract infection and sepsis with E coli. He was also found to have severe anemia. PAST MEDICAL HISTORY: Significant for hiatal hernia, schizophrenia, Alexander esophagus, iron-deficiency anemia, recurrent falls, remote history of left ankle fracture, pneumothorax. ALLERGIC: To phenothiazine. MEDICATIONS: Fluoxetine, gabapentin, olanzapine, Protonix, vancomycin, Effexor, albuterol ipratropium inhaler, Zosyn, Tylenol, heparin, MiraLAX, Zofran. SOCIAL HISTORY: prison resident. He has history of remote smoking. No alcohol or drug abuse. He is not . REVIEW OF SYSTEMS: Feels better. No fever. No chills. No coughing. No shortness of breath. No nausea. No vomiting. No problem passing urine. PHYSICAL EXAMINATION: VITAL SIGNS: Temperature 98.4, pulse 88, blood pressure 140/79. GENERAL APPEARANCE: No acute distress, sitting up in bed comfortably. HEAD AND NECK: [place] conjunctiva. HEART: Normal rate. LUNGS: Clear. ABDOMEN: Soft and nontender. EXTREMITIES: Has no edema. Peripheral line. NEUROLOGIC: Awake, alert, verbal. Seems to have some memory loss. LABORATORY AND DIAGNOSTIC DATA: WBC 13.9, coming from 30.1 at the time of admission, hemoglobin 9.2 coming up from 7.8, hematocrit 28.8, and platelets is 502. Sodium 136, potassium 4.2, chloride 103, bicarbonate 23, BUN 9, creatinine 1.2, glucose 119. He had elevation of LFT, AST is 117, ALT 136, alkaline phosphatase is 168. Blood culture x2 are negative. UA had wbc's of 2 to 4, nitrite negative. IMPRESSION: 1. Sepsis or systemic inflammatory response. 2. Elevated transaminase level. 3. Severe anemia. 4. Recent history of urinary tract infection and sepsis with E coli. 5. Recent history of hospitalization. RECOMMENDATION: Continue Zosyn. Discontinue IV vancomycin. We will follow up the culture. At the end of my exam, I thank Dr. Terry Short, for involving me in the care of this patient. Dominik Zuluaga M.D. DR: Aida JOB#: [id number] CC: ADILSON
[2018-06-10 16:00] VITALS: BP 153/91
--- NOTE | 2018-06-10 19:45 | NUR ---
HAND-OFF: Report given to Ingrid Paz RN.
--- NOTE | 2018-06-10 19:50 | NUR ---
NURSE NOTES: Report received from Elisa RN.Pt awake,alert sitting up on bed watching TV. HOB elevated. on 2 Liters oxygen via N/C satting 98%. No s/s of cardiac and acute distress noted. SR on the monitor hr 77, IV site intact with IVF D5 1/2 Ns with KCL 20 mEq at 75ml/hr. Denies any pain or discomfort. Condom cath intact draining with clear yellow urine. skin warm and dry. Instructed patient to use call light for assistance. Bed alarm on. Bed locked and in low position. SR up x2 HOB elevated. will continue with plans of care.
[2018-06-10 20:00] VITALS: BP 148/85
[2018-06-11] VITALS (7 sets, daily range): BP systolic 129–173; BP diastolic 77–96
--- NOTE | 2018-06-11 | NUR ---
NURSE NOTES: Bed bath given tolerated well. Call light within easy reach.
[2018-06-11] MEDS: Albuterol/Ipratropium 3ml neb HHN SCH ×7 (00:01→23:10)
--- NOTE | 2018-06-11 03:00 | Progress Note ---
DATE: 06/10/2018 CARDIOLOGY PROGRESS NOTE SUBJECTIVE: The patient remains on IV antimicrobials. Blood pressure parameters have stabilized. OBJECTIVE: VITAL SIGNS: Blood pressure 125/75, pulse 75, respiratory rate 20, afebrile. NECK: Supple. Jugular venous pressure normal. LUNGS: Clear. CARDIAC: Regular rhythm and rate. Normal S1, S2 with a fourth heart sound. ABDOMEN: Soft, nontender. No guarding or rebound. No peritoneal signs. EXTREMITIES: Without clubbing or cyanosis. There is trace dependent edema. LABORATORY DATA: Blood cultures negative. White count 13.9, hemoglobin 9.2. Potassium 4.2, BUN 9, creatinine 1.2. Lactic acid normalized 2 days ago. Liver function studies remained elevated and albumin is 1.7. IMPRESSION: 1. Severe sepsis with recovered shock. 2. Transaminitis. 3. Acute myocardial ischemia, resolved. 4. Lactic acidosis, resolved. 5. Severe protein-calorie malnutrition. 6. Anemia. PLAN: 1. Antimicrobials. 2. Volume support. 3. Trend liver function studies. 4. Monitor hemoglobin. Transfuse if less than 7 grams. 5. No anti-platelet or anticoagulant therapy at this time. 6. Monitor volume status closely. Fer Hernandez M.D. DR: Cj JOB#: [id number] CC:
[2018-06-11 06:05] LABS: BASOPHILS % (AUTO) 0.5 % (0.0-2.0); EOSINOPHILS % (AUTO) 1.2 % (0.0-3.0); HEMATOCRIT 29.8 % (42.0-52.0); HEMOGLOBIN 9.7 G/DL (14.2-18.0); LYMPHOCYTES % (AUTO) 6.6 % (20.0-45.0); MEAN CORPUSCULAR VOLUME 82 FL (80-99); MONOCYTES % (AUTO) 6.8 % (1.0-10.0); NEUTROPHILS % (AUTO) 84.9 % (45.0-75.0); PLATELET COUNT 481 K/UL (150-450); RED BLOOD COUNT 3.62 M/UL (4.70-6.10); RED CELL DISTRIBUTION WIDTH 16.3 % (11.6-14.8); WHITE BLOOD COUNT 14.3 K/UL (4.8-10.8)
[2018-06-11 06:34] LABS: % IRON SATURATION 31 % (15-50); IRON 50 ug/dL (50-175); TOTAL IRON BINDING CAPACITY 160 ug/dL (250-450)
[2018-06-11 07:00] LABS: ALANINE AMINOTRANSFERASE 147 U/L (12-78); ALBUMIN 1.8 G/DL (3.4-5.0); ALBUMIN/GLOBULIN RATIO 0.4 (1.0-2.7); ALKALINE PHOSPHATASE 194 U/L (46-116); ANION GAP 9 mmol/L (5-15); ASPARTATE AMINO TRANSFERASE 118 U/L (15-37); BILIRUBIN,TOTAL 0.6 MG/DL (0.2-1.0); BLOOD UREA NITROGEN 9 mg/dL (7-18); CALCIUM 8.7 MG/DL (8.5-10.1); CARBON DIOXIDE 24 MMOL/L (21-32); CHLORIDE 101 MMOL/L (98-107); CREATININE 1.1 MG/DL (0.55-1.30); POTASSIUM 3.9 MMOL/L (3.5-5.1); SODIUM 134 MMOL/L (136-145)
--- NOTE | 2018-06-11 07:22 | NUR ---
HAND-OFF: Report given to Charley ZAPATA.
--- NOTE | 2018-06-11 07:23 | NUR ---
NURSE NOTES: RECEIVED PATIENT FROM Gabbie HAMLIN RN, PATIENT IS LYING IN BED, AWAKE, CONFUSED. 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 ON 2L NC. NPO FOR US ABD. NOTED SCABS ON RLE. IVS ON L AC AND F FA G18 WITH IVF RUNNING D5 1/2 NS + 20MEQS KCL AT 75CC/HR. CALL LIGHT WITHIN REACH. BED AT LOWEST POSITION. WILL CONTINUE TO MONITOR.
[2018-06-11] MEDS: Heparin 5000 units/ml inj SUBQ SCH ×2 (08:47→20:58)
[2018-06-11] MEDS: Venlafaxine XR 75mg cap ORAL SCH (08:48)
[2018-06-11] MEDS: Docusate 250mg cap ORAL SCH ×2 (08:48→18:00)
[2018-06-11] MEDS: ZyPREXA Zydis 10mg tab ORAL SCH ×2 (08:50→18:00)
--- NOTE | 2018-06-11 09:00 | NUR ---
NURSE NOTES: TRIED TO GET OUT OF THE BED. BED AT LOWEST POSITION. CALL LIGHT WITHIN REACH. WILL CONTINUE TO MONITOR.
--- NOTE | 2018-06-11 09:21 | NUR ---
NURSE NOTES: WOUND CARE NOTES:PT presented on admission with non-blanchable erythema to R and L clefts of buttocks with moisture denudement secondary incontinence associated dermatitis. Bas of scrotum red. Pt having loose B.M. Non-blanchable erythema without fluctuance noted to lateral L foot. Both heels are dry,pink and blanchable. All wound prevention initiated on admission secondary to pt easily agitated and at risks for further skin breakdown. Moisture Barrier Paste applied to scrotum and Clefts of buttocks. Sacrum covered with Optifoam drsg. Cavilon Skin Barrier applied to both heels and each heels and lateral L foot covered with Optifoam drsgs. Tx.Plan:Apply Triad Paste to cleft of Buttocks with each perineal care. Cover Sacrum with Optifoam drsg.Change Q3 days. Apply Cavilon to both to both heels and Lateral L foot. Cover with Optifoam Q7days and prn.
--- NOTE | 2018-06-11 10:19 | Cardiology Report ---
APPROVED REPORT EXAM: Two-dimensional and M-mode echocardiogram with Doppler and color Doppler. INDICATION Coronary artery disease M-Mode DIMENSIONS IVSd1.1 (0.7-1.1cm)Left Atrium (MM)4.0 (1.6-4.0cm) LVDd4.2 (3.5-5.6cm)Aortic Root3.2 (2.0-3.7cm) PWd0.9 (0.7-1.1cm)Aortic Cusp Exc.2.0 (1.5-2.0cm) LVDs2.0 (2.5-4.0cm) PWs1.5 cm Normal left ventricular chamber size, systolic function and wall motion. Left ventricular ejection fraction estimated to be 55 %. Borderline left ventricular hypertrophy. No evidence of pericardial effusion. All other cardiac chamber sizes are within normal limits. Focal aortic valve sclerosis with adequate cusp excursion. Thickened mitral valve leaflets with normal excursion. Mild mitral annulus and aortic root calcification. Normal pulmonic valve structure. Normal tricuspid valve structure. IVC is normal in size with physiological collapse. A color flow and spectral Doppler study was performed and revealed: No aortic insufficiency. Mild mitral regurgitation. Mitral diastolic velocities suggest mild left ventricular diastolic dysfunction (Grade I). Trace tricuspid regurgitation. Tricuspid systolic velocities suggests peak right ventricular systolic pressure of 19 mmHg. No pulmonic regurgitation present.
--- NOTE | 2018-06-11 10:46 | Infectious Diseases Prog Note ---
Assessment/Plan Assessment/Plan antibiotics : zosyn A 1. leucocytosis improving 2. ? cholangitis 3. schizophrenia 4. anemia P 1. continue zosyn 2. will follow up cultures 3. US abdomen pending 4. d/w Dr Short Subjective Constitutional: Denies: fever, chills Respiratory: Denies: shortness of breath, dry cough Gastrointestinal/Abdominal: Denies: nausea, vomiting, diarrhea Musculoskeletal: Denies: pain Allergies: Coded Allergies: PHENOTHIAZINES (Verified Allergy, Unknown, lock jaw anxiety, 06/09/18) Objective Vital Signs Last 24 Hour Vital Signs Date Time Temp Pulse Resp B/P (MAP) Pulse Ox O2 Delivery O2 Flow Rate FiO2 06/11/18 07:00 Nasal Cannula 2.0 28 06/11/18 07:00 Nasal Cannula 2.0 28 06/11/18 06:45 72 18 Nasal Cannula 2.0 28 06/11/18 04:00 Nasal Cannula 2.0 06/11/18 04:00 69 06/11/18 04:00 97.7 73 20 138/82 (100) 99 06/11/18 03:00 Nasal Cannula 2.0 28 06/11/18 03:00 Nasal Cannula 2.0 28 06/11/18 00:09 69 18 99 Nasal Cannula 2.0 28 06/11/18 00:02 75 20 98 Nasal Cannula 2.0 28 06/11/18 00:00 Nasal Cannula 2.0 06/11/18 00:00 97.7 77 20 139/77 (97) 99 06/10/18 20:10 65 18 100 Nasal Cannula 2.0 28 06/10/18 20:02 67 18 Nasal Cannula 2.0 28 06/10/18 20:00 77 06/10/18 20:00 Nasal Cannula 2.0 06/10/18 20:00 97.6 77 20 148/85 (106) 99 06/10/18 19:59 67 18 97 Nasal Cannula 2.0 28 06/10/18 16:30 79 80 06/10/18 16:00 97.6 79 23 153/91 (111) 99 06/10/18 16:00 78 06/10/18 16:00 Nasal Cannula 2.0 06/10/18 15:00 Nasal Cannula 2.0 28 06/10/18 15:00 Nasal Cannula 2.0 28 06/10/18 12:00 76 82 96 06/10/18 12:00 Nasal Cannula 2.0 06/10/18 12:00 76 06/10/18 12:00 98.7 82 23 150/89 (109) 99 06/10/18 11:18 88 18 100 Nasal Cannula 2.0 28 06/10/18 11:11 80 18 94 Nasal Cannula 2.0 28 Height (Feet): 5 Height (Inches): 8.00 Weight (Pounds): 169 Respiratory/Chest: lungs clear Cardiovascular: normal rate, regular rhythm, no gallop/murmur Abdomen: soft, non tender Extremities: no edema Microbiology Date/Time Source Procedure Growth Status 06/08/18 17:30 Blood Blood Culture - Preliminary NO GROWTH AFTER 48 HOURS Resulted 06/08/18 17:15 Blood Blood Culture - Preliminary NO GROWTH AFTER 48 HOURS Resulted 06/08/18 21:27 Nasal Nares MRSA Culture - Final NO METHICILLIN RESISTANT STAPH AUREUS... Complete Laboratory Tests Test 06/11/18 03:50 06/11/18 05:00 White Blood Count 14.3 K/UL (4.8-10.8) H Red Blood Count 3.62 M/UL (4.70-6.10) L Hemoglobin 9.7 G/DL (14.2-18.0) L Hematocrit 29.8 % (42.0-52.0) L Mean Corpuscular Volume 82 FL (80-99) Mean Corpuscular Hemoglobin 26.8 PG (27.0-31.0) L Mean Corpuscular Hemoglobin Concent 32.6 G/DL (32.0-36.0) Red Cell Distribution Width 16.3 % (11.6-14.8) H Platelet Count 481 K/UL (150-450) H Mean Platelet Volume 5.2 FL (6.5-10.1) L Neutrophils (%) (Auto) 84.9 % (45.0-75.0) H Lymphocytes (%) (Auto) 6.6 % (20.0-45.0) L Monocytes (%) (Auto) 6.8 % (1.0-10.0) Eosinophils (%) (Auto) 1.2 % (0.0-3.0) Basophils (%) (Auto) 0.5 % (0.0-2.0) Sodium Level 134 MMOL/L (136-145) L Potassium Level 3.9 MMOL/L (3.5-5.1) Chloride Level 101 MMOL/L (98-107) Carbon Dioxide Level 24 MMOL/L (21-32) Anion Gap 9 mmol/L (5-15) Blood Urea Nitrogen 9 mg/dL (7-18) Creatinine 1.1 MG/DL (0.55-1.30) Estimat Glomerular Filtration Rate mL/min (>60) Glucose Level 87 MG/DL (74-106) Calcium Level 8.7 MG/DL (8.5-10.1) Iron Level 50 ug/dL (50-175) Total Iron Binding Capacity 160 ug/dL (250-450) L Percent Iron Saturation 31 % (15-50) Unsaturated Iron Binding 110 ug/dL (112-346) L Total Bilirubin 0.6 MG/DL (0.2-1.0) Aspartate Amino Transf (AST/SGOT) 118 U/L (15-37) H Alanine Aminotransferase (ALT/SGPT) 147 U/L (12-78) H Alkaline Phosphatase 194 U/L (46-116) H Total Protein 6.6 G/DL (6.4-8.2) Albumin 1.8 G/DL (3.4-5.0) L Globulin 4.8 g/dL Albumin/Globulin Ratio 0.4 (1.0-2.7) L Carcinoembryonic Antigen Pending Vitamin B12 Level 907 PG/ML (193-986) Folate 14.4 NG/ML (8.6-58.9) Thyroid Stimulating Hormone (TSH) 10.269 uiU/mL (0.358-3.740) Cortisol AM Sample Pending Hepatitis A IgM Antibody Pending Hepatitis B Surface Antigen Pending Hepatitis B Core IgM Antibody Pending Hepatitis C Antibody Pending Stool Occult Blood Positive (NEGATIVE) Current Medications Medications (Trade) Dose Ordered Sig/Magdalena Route PRN Reason Start Time Stop Time Status Last Admin Dose Admin Acetaminophen (Tylenol) 650 mg Q4H PRN ORAL Mild Pain (Pain Scale 1-3) 06/09/18 20:00 07/08/18 19:59 Acetaminophen (Tylenol) 650 mg Q4H PRN ORAL Fever 06/09/18 21:15 07/08/18 21:14 Acetaminophen (Tylenol) 650 mg Q4H PRN RECTAL FEVER 06/09/18 20:00 07/08/18 19:59 Acetaminophen (Tylenol) 650 mg Q4H PRN RECTAL Mild Pain (Pain Scale 1-3) 06/09/18 20:00 07/08/18 19:59 Albuterol/ Ipratropium (Albuterol/ Ipratropium) 3 ml Q4HRT HHN 06/09/18 23:00 06/14/18 14:59 06/11/18 00:01 Dextrose (Dextrose 50%) 25 ml Q30M PRN IV Hypoglycemia 06/09/18 19:45 07/08/18 21:14 Dextrose (Dextrose 50%) 50 ml Q30M PRN IV Hypoglycemia 06/09/18 19:45 07/08/18 21:14 Dextrose/ Electrolytes 1,000 ml @ 75 mls/hr [id number] IV 06/10/18 11:00 07/10/18 10:59 06/10/18 21:44 Docusate Sodium (Colace) 250 mg BID ORAL 06/10/18 09:00 07/09/18 08:59 06/10/18 17:33 Fluoxetine HCl (PROzac) 40 mg DAILY ORAL 06/10/18 09:00 07/09/18 08:59 06/10/18 09:14 Gabapentin (Neurontin) 300 mg BID ORAL 06/10/18 09:00 07/08/18 21:29 06/10/18 17:33 Heparin Sodium (Porcine) (Heparin 5000 units/ml) 5,000 units EVERY 12 HOURS SUBQ 06/09/18 21:00 07/09/18 08:59 06/11/18 08:47 Mirtazapine (Remeron) 7.5 mg BEDTIME ORAL 06/09/18 21:00 07/09/18 20:59 06/10/18 21:42 Olanzapine (ZyPREXA Zydis) 10 mg BID ORAL 06/10/18 09:00 07/08/18 21:29 06/10/18 17:32 Ondansetron HCl (Zofran) 4 mg Q6H PRN IVP Nausea & Vomiting 06/09/18 19:30 07/08/18 19:29 Pantoprazole (Protonix) 40 mg DAILY ORAL 06/10/18 09:00 07/09/18 08:59 06/10/18 09:14 Piperacillin Sod/ Tazobactam Sod 3.375 gm/Sodium Chloride 100 ml @ 25 mls/hr Q8HR IVPB 06/09/18 22:00 06/16/18 07:59 06/11/18 06:05 Polyethylene Glycol (Miralax) 17 gm DAILYPRN PRN ORAL Constipation 06/09/18 19:30 07/08/18 19:29 Venlafaxine HCl (Effexor-XR) 225 mg DAILY ORAL 06/10/18 09:00 07/09/18 08:59 06/10/18 09:13 Piter Patel MD Jun 11, 2018 10:46
[2018-06-11] MEDS: D5 1/2NS w/KCl 20mEq 1,000 ML IV SCH (12:48)
--- NOTE | 2018-06-11 13:00 | NUR ---
NURSE NOTES: Pt kept clean and dry. Noted to be agitated and tried to get out of bed. Pull IV out. Still on 2L NC no signs of distress will continue to monitor.
--- NOTE | 2018-06-11 13:18 | NUR ---
NURSE NOTES: Called and left a message to Dr Carmichael regarding diet order. Awaiting call back. Will continue to monitor.
--- NOTE | 2018-06-11 15:14 | Diagnostic Imaging Report ---
Indication: Abdominal pain, history of encephalopathy, abnormal liver function tests, leukocytosis Technique: Perry-scale and duplex images of the upper abdomen were obtained. Doppler interrogation of the hepatic and pancreatic vessels Comparison: none Findings: Gallbladder is unremarkable, without stones, wall thickening, nor pericholecystic fluid. Sonographic Martinez's sign is negative. Common bile duct measures 3 mm in diameter. No intrahepatic biliary ductal dilatation. Liver demonstrates normal echogenicity, no focal abnormality. Portal vein and hepatic veins are patent. Pancreas is unremarkable. Spleen is unremarkable. Left kidney measures 10.8 cm in length. Right kidney measures 10.8 cm length. Both kidneys demonstrate normal echogenicity. There is no hydronephrosis. There are bilateral renal cysts . Abdominal aorta is partially obscured by bowel gas, visualized portions are non-aneurysmal . Impression: No acute abnormality. Negative for gallstones or dilated bile ducts Noted inability to visualize portions of the abdominal aorta Bilateral renal cysts incidentally noted
--- NOTE | 2018-06-11 15:39 | NUR ---
ST NOTE: ATTEMPTED ST EVAL IN AM. PT WAS ON NPO FOR PROCEDURE. WILL RE-ATTEMPT. RNLAZARO, NOTIFIED.
--- NOTE | 2018-06-11 19:14 | NUR ---
HAND-OFF: Report given to Shu Monsalve RN.
--- NOTE | 2018-06-11 19:15 | NUR ---
NURSE NOTES: Report received from JODI Whitehead. Patient seen in bed in semi mcdermott position. Alert, verbally responsive, able to make needs known. episode of confusion noted at times. Denies any pain at this time. IV site noted to Right fa 20g and left Addendum: 06/11/18 at 1934 by Julieta Monsalve RN NURSE NOTES: Report received from JODI Whitehead. Patient seen in bed in semi mcdermott position. Alert, verbally responsive, able to make needs known. episode of confusion noted at times. Denies any pain at this time. IV site noted to Right FA 22g and left AC 20 g is intact. IVF of D5 1/2 NS with 20 mEq KCL is running at 75cc/hr. Patient is currently on room air and sp02 is 98 %. Bed is in lowest position. call light is within easy reach while in bed. Will continue to monitor.
[2018-06-11] MEDS ORDERED: Gadavist 7.5mMol/7.5ml vial IV PRN (19:30)
--- NOTE | 2018-06-11 19:43 | General Progress Note ---
Assessment/Plan Problem List: (1) Gait abnormality ICD Codes: R26.9 - Unspecified abnormalities of gait and mobility SNOMED: 39029421 (2) Dehydration ICD Codes: E86.0 - Dehydration SNOMED: 30070364 (3) BENJAMIN (acute kidney injury) ICD Codes: N17.9 - Acute kidney failure, unspecified SNOMED: 08336427 (4) Iron deficiency anemia ICD Codes: D50.9 - Iron deficiency anemia, unspecified SNOMED: 04613996 (5) Pyelonephritis ICD Codes: N12 - Tubulo-interstitial nephritis, not specified as acute or chronic SNOMED: 06958080 (6) Septic shock ICD Codes: A41.9 - Sepsis, unspecified organism; R65.21 - Severe sepsis with septic shock SNOMED: 83401958 (7) Sepsis ICD Codes: A41.9 - Sepsis, unspecified organism SNOMED: 55533898 (8) Abnormal LFTs ICD Codes: R94.5 - Abnormal results of liver function studies SNOMED: 517386986 Assessment/Plan pyelo treated recently at [facility] e coli bacteremia. Elevated lft with normal mrcp and hida at [facility], concern for cbd stone /cholangitis vs recurrent pyelo. hypotension resolving with fluids. Anemia and transfusion indicated. Mild wheeze and atelectasis, hhn ordered. bp better. low albumin and edema. Need to mobilize , d/w consultants Subjective Constitutional: Reports: weakness HEENT: Reports: no symptoms Cardiovascular: Reports: no symptoms Respiratory: Reports: no symptoms Gastrointestinal/Abdominal: Reports: poor appetite Genitourinary: Reports: no symptoms Neurologic/Psychiatric: Reports: no symptoms Endocrine: Reports: no symptoms Hematologic/Lymphatic: Reports: anemia Allergies: Coded Allergies: PHENOTHIAZINES (Verified Allergy, Unknown, lock jaw anxiety, 06/09/18) Objective Last 24 Hour Vital Signs Date Time Temp Pulse Resp B/P (MAP) Pulse Ox O2 Delivery O2 Flow Rate FiO2 06/11/18 16:00 Nasal Cannula 2.0 06/11/18 16:00 97.5 97 19 129/88 (102) 98 06/11/18 16:00 84 06/11/18 15:00 Nasal Cannula 2.0 28 06/11/18 15:00 Nasal Cannula 2.0 28 06/11/18 14:32 97.7 78 20 149/87 (107) 97 06/11/18 12:00 Nasal Cannula 2.0 06/11/18 12:00 77 06/11/18 12:00 97.7 78 20 173/96 (121) 97 06/11/18 11:20 88 18 97 Nasal Cannula 2.0 28 06/11/18 11:10 78 18 97 Nasal Cannula 2.0 28 06/11/18 08:00 77 06/11/18 08:00 Nasal Cannula 2.0 06/11/18 08:00 97.7 78 20 149/87 (107) 97 06/11/18 07:00 Nasal Cannula 2.0 28 06/11/18 07:00 Nasal Cannula 2.0 28 06/11/18 06:45 72 18 Nasal Cannula 2.0 28 06/11/18 04:00 Nasal Cannula 2.0 06/11/18 04:00 69 06/11/18 04:00 97.7 73 20 138/82 (100) 99 06/11/18 03:00 Nasal Cannula 2.0 28 06/11/18 03:00 Nasal Cannula 2.0 28 06/11/18 00:09 69 18 99 Nasal Cannula 2.0 28 06/11/18 00:02 75 20 98 Nasal Cannula 2.0 28 06/11/18 00:00 Nasal Cannula 2.0 06/11/18 00:00 97.7 77 20 139/77 (97) 99 06/10/18 20:10 65 18 100 Nasal Cannula 2.0 28 06/10/18 20:02 67 18 Nasal Cannula 2.0 28 06/10/18 20:00 77 06/10/18 20:00 Nasal Cannula 2.0 06/10/18 20:00 97.6 77 20 148/85 (106) 99 06/10/18 19:59 67 18 97 Nasal Cannula 2.0 28 Intake and Output 06/10/18 06/11/18 19:00 07:00 Intake Total 1680 ml 1059.66 ml Output Total 1101 ml 3000 ml Balance 579 ml -1940.34 ml Intake Oral 480 ml IV Total 1200 ml 1059.66 ml Output Urine Total 1100 ml 3000 ml Stool Total 1 ml # Bowel Movements 1 2 Laboratory Tests 06/11/18 03:50: White Blood Count 14.3H, Red Blood Count 3.62L, Hemoglobin 9.7L, Hematocrit 29.8L, Mean Corpuscular Volume 82, Mean Corpuscular Hemoglobin 26.8L, Mean Corpuscular Hemoglobin Concent 32.6, Red Cell Distribution Width 16.3H, Platelet Count 481H, Mean Platelet Volume 5.2L, Neutrophils (%) (Auto) 84.9H, Lymphocytes (%) (Auto) 6.6L, Monocytes (%) (Auto) 6.8, Eosinophils (%) (Auto) 1.2, Basophils (%) (Auto) 0.5, Sodium Level 134L, Potassium Level 3.9, Chloride Level 101, Carbon Dioxide Level 24, Anion Gap 9, Blood Urea Nitrogen 9, Creatinine 1.1, Estimat Glomerular Filtration Rate , Glucose Level 87, Calcium Level 8.7, Iron Level 50, Total Iron Binding Capacity 160L, Percent Iron Saturation 31, Unsaturated Iron Binding 110L, Total Bilirubin 0.6, Aspartate Amino Transf (AST/SGOT) 118H, Alanine Aminotransferase (ALT/SGPT) 147H, Alkaline Phosphatase 194H, Total Protein 6.6, Albumin 1.8L, Globulin 4.8, Albumin/Globulin Ratio 0.4L, Carcinoembryonic Antigen [Pending], Vitamin B12 Level 907, Folate 14.4, Thyroid Stimulating Hormone (TSH) 10.269H, Cortisol AM Sample 21.6, Hepatitis A IgM Antibody [Pending], Hepatitis B Surface Antigen [ Pending], Hepatitis B Core IgM Antibody [Pending], Hepatitis C Antibody [Pending ] 06/11/18 05:00: Stool Occult Blood Positive Height (Feet): 5 Height (Inches): 8.00 Weight (Pounds): 169 General Appearance: no apparent distress, alert EENT: normal ENT inspection Neck: normal alignment Cardiovascular: normal rate, regular rhythm Respiratory/Chest: lungs clear Abdomen: non tender Edema: mild edema Neurologic: stamp mounter II-XII grossly normal Terry Short MD Jun 11, 2018 19:43
--- NOTE | 2018-06-11 19:46 | General Progress Note ---
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 - leukocytosis Recommendations - repeat HSV titers, this time with PCR - ID input - check MRI / MRCP Subjective Allergies: Coded Allergies: PHENOTHIAZINES (Verified Allergy, Unknown, lock jaw anxiety, 06/09/18) Subjective Above noted d/w PMD patient without abdominal complaints Recent biliary w/u at [facility] reviewed: - CT negative - US negative x for mild sludge - HIDA/CCK negative - all viral serologies negative except HSV1 IgM (+) Objective Last 24 Hour Vital Signs Date Time Temp Pulse Resp B/P (MAP) Pulse Ox O2 Delivery O2 Flow Rate FiO2 06/11/18 16:00 Nasal Cannula 2.0 06/11/18 16:00 97.5 97 19 129/88 (102) 98 06/11/18 16:00 84 06/11/18 15:00 Nasal Cannula 2.0 28 06/11/18 15:00 Nasal Cannula 2.0 28 06/11/18 14:32 97.7 78 20 149/87 (107) 97 06/11/18 12:00 Nasal Cannula 2.0 06/11/18 12:00 77 06/11/18 12:00 97.7 78 20 173/96 (121) 97 06/11/18 11:20 88 18 97 Nasal Cannula 2.0 28 06/11/18 11:10 78 18 97 Nasal Cannula 2.0 28 06/11/18 08:00 77 06/11/18 08:00 Nasal Cannula 2.0 06/11/18 08:00 97.7 78 20 149/87 (107) 97 06/11/18 07:00 Nasal Cannula 2.0 28 06/11/18 07:00 Nasal Cannula 2.0 28 06/11/18 06:45 72 18 Nasal Cannula 2.0 28 06/11/18 04:00 Nasal Cannula 2.0 06/11/18 04:00 69 06/11/18 04:00 97.7 73 20 138/82 (100) 99 06/11/18 03:00 Nasal Cannula 2.0 28 06/11/18 03:00 Nasal Cannula 2.0 28 06/11/18 00:09 69 18 99 Nasal Cannula 2.0 28 06/11/18 00:02 75 20 98 Nasal Cannula 2.0 28 06/11/18 00:00 Nasal Cannula 2.0 06/11/18 00:00 97.7 77 20 139/77 (97) 99 06/10/18 20:10 65 18 100 Nasal Cannula 2.0 28 06/10/18 20:02 67 18 Nasal Cannula 2.0 28 06/10/18 20:00 77 06/10/18 20:00 Nasal Cannula 2.0 06/10/18 20:00 97.6 77 20 148/85 (106) 99 06/10/18 19:59 67 18 97 Nasal Cannula 2.0 28 Intake and Output 06/10/18 06/11/18 19:00 07:00 Intake Total 1680 ml 1059.66 ml Output Total 1101 ml 3000 ml Balance 579 ml -1940.34 ml Intake Oral 480 ml IV Total 1200 ml 1059.66 ml Output Urine Total 1100 ml 3000 ml Stool Total 1 ml # Bowel Movements 1 2 Laboratory Tests 06/11/18 03:50: White Blood Count 14.3H, Red Blood Count 3.62L, Hemoglobin 9.7L, Hematocrit 29.8L, Mean Corpuscular Volume 82, Mean Corpuscular Hemoglobin 26.8L, Mean Corpuscular Hemoglobin Concent 32.6, Red Cell Distribution Width 16.3H, Platelet Count 481H, Mean Platelet Volume 5.2L, Neutrophils (%) (Auto) 84.9H, Lymphocytes (%) (Auto) 6.6L, Monocytes (%) (Auto) 6.8, Eosinophils (%) (Auto) 1.2, Basophils (%) (Auto) 0.5, Sodium Level 134L, Potassium Level 3.9, Chloride Level 101, Carbon Dioxide Level 24, Anion Gap 9, Blood Urea Nitrogen 9, Creatinine 1.1, Estimat Glomerular Filtration Rate , Glucose Level 87, Calcium Level 8.7, Iron Level 50, Total Iron Binding Capacity 160L, Percent Iron Saturation 31, Unsaturated Iron Binding 110L, Total Bilirubin 0.6, Aspartate Amino Transf (AST/SGOT) 118H, Alanine Aminotransferase (ALT/SGPT) 147H, Alkaline Phosphatase 194H, Total Protein 6.6, Albumin 1.8L, Globulin 4.8, Albumin/Globulin Ratio 0.4L, Carcinoembryonic Antigen [Pending], Vitamin B12 Level 907, Folate 14.4, Thyroid Stimulating Hormone (TSH) 10.269H, Cortisol AM Sample 21.6, Hepatitis A IgM Antibody [Pending], Hepatitis B Surface Antigen [ Pending], Hepatitis B Core IgM Antibody [Pending], Hepatitis C Antibody [Pending ] 06/11/18 05:00: Stool Occult Blood Positive Height (Feet): 5 Height (Inches): 8.00 Weight (Pounds): 169 Objective WDWN NCAT supple CTA RRR abd soft ND NT no edema nonfocal Cesar Mcgill MD Jun 11, 2018 19:46
--- NOTE | 2018-06-11 19:55 | NUR ---
NURSE NOTES: left a voice mail with JUDY perdue re: MRI with contrast consent. Awaiting for call back.
[2018-06-11] MEDS ORDERED: D5 1/2NS w/KCl 20mEq 1,000 ML IV SCH ×2 (20:00→23:30)
--- NOTE | 2018-06-11 20:30 | NUR ---
NURSE NOTES: Received call back from Rebeca (JUDY). Verbal consent obtained over the phone for MRI abdomen with contrast.
--- NOTE | 2018-06-11 23:30 | NUR ---
NURSE NOTES: Patient was brought to Med surg unit via bed accompanied by 3 RN and 1 TERRAZZO GRINDER in stable condition. Report given to JODI Daniels at bedside.
[2018-06-12] VITALS: BP 153/92
[2018-06-12] MEDS ORDERED: Acetaminophen 650 MG SUPP RECTAL PRN ×2
--- NOTE | 2018-06-12 00:26 | NUR ---
NURSE NOTES: Patient transferred from [facility] to 3E room 310-2. Received report from Christina ZAPATA. Patient is alert and oriented. VSS. No SOB noted. Belongings list signed. Needs attended. In stable condition.
--- NOTE | 2018-06-12 00:54 | NUR ---
NURSE NOTES: Patient with signs of confusion. Standing up and refusing treatment. Pulled out IV line with wrap on it. Re inserted a new IV. Bed alarm on. Bed is locked and in low position. Needs attended. Call light within reach. In stable condition.
[2018-06-12] MEDS: Albuterol/Ipratropium 3ml neb HHN SCH ×6 (03:00→23:00)
[2018-06-12 04:00] VITALS: BP 136/73
--- NOTE | 2018-06-12 05:00 | Progress Note ---
DATE: 06/11/2018 CARDIOLOGY PROGRESS NOTE SUBJECTIVE: The patient with no new complaints. No abdominal pain. OBJECTIVE: VITAL SIGNS: Blood pressure 129/88, pulse 97, respiratory rate 19, and afebrile. LUNGS: Clear. CARDIAC: Regular. ABDOMEN: Soft. No focal tenderness, guarding, or rebound. EXTREMITIES: No edema. LABORATORY DATA: White count 14 and hemoglobin 9.7. TSH is 10. IMPRESSION: 1. Sepsis with recovered shock and resolving leukocytosis. 2. Possible cholangitis. 3. Hypovolemia and dehydration, corrected. 4. Acute myocardial ischemia, resolved. 5. Lactic acidosis, resolved. 6. Severe protein-calorie malnutrition persists. PLAN: 1. Plan of care to include antimicrobials. 2. Liver function workup. 3. Repeat imaging of the biliary tree. 4. Monitor hemoglobin and transfuse if less than 7 g. 5. Avoid anti-platelet and anticoagulants presently. 6. Adjust IV fluids based on volume status and clinical parameters. Fer Hernandez M.D. DR: LYDIA JOB#: [id number] CC:
--- NOTE | 2018-06-12 07:10 | NUR ---
NURSE NOTES: Patient with episodes of confusion and agitation. Dr. Hernandez called for orders, awaiting for call back. Patient currently at the bed asleep. dressing placed on the sacral area. Needs attended. In stable condition.
--- NOTE | 2018-06-12 07:15 | NUR ---
NURSE NOTES:RECEIVED PATIENT VERY AGITATED AND RESTLESS,KEEP ON GETTING OUT OF BED WITHOUT CALLING FOR THE NURSE OR USING CALL LIGHT,BED ALARM ON.REMAINS NPO FOR MRI OF ABDOMEN.REFUSED FOR IV AWAITING FOR CALL BACK FRMahin AGUILERA.WILL CONTINOUSLY .MONITOR PATIENT,SIDERAILS UP X3.
[2018-06-12 08:00] VITALS: BP 150/90
[2018-06-12 08:27] LABS: ALANINE AMINOTRANSFERASE 142 U/L (12-78); ALBUMIN 2.1 G/DL (3.4-5.0); ALBUMIN/GLOBULIN RATIO 0.4 (1.0-2.7); ALKALINE PHOSPHATASE 212 U/L (46-116); ANION GAP 11 mmol/L (5-15); ASPARTATE AMINO TRANSFERASE 100 U/L (15-37); BLOOD UREA NITROGEN 8 mg/dL (7-18); CALCIUM 9.1 MG/DL (8.5-10.1); CARBON DIOXIDE 26 MMOL/L (21-32); CHLORIDE 96 MMOL/L (98-107); CREATINE KINASE 95 U/L (26-308); CREATININE 1.1 MG/DL (0.55-1.30); SODIUM 133 MMOL/L (136-145)
[2018-06-12] MEDS: Heparin 5000 units/ml inj SUBQ SCH ×2 (09:00→21:00)
[2018-06-12] MEDS: ZyPREXA Zydis 10mg tab ORAL SCH ×3 (09:24→18:07)
[2018-06-12] MEDS: Docusate 250mg cap ORAL SCH ×2 (09:24→18:00)
[2018-06-12] MEDS: Venlafaxine XR 75mg cap ORAL SCH (09:25)
[2018-06-12 10:35] VITALS: BP 150/91
--- NOTE | 2018-06-12 10:43 | Infectious Diseases Prog Note ---
Assessment/Plan Assessment/Plan antibiotics : zosyn A 1. leucocytosis improving 2. ? cholangitis 3. schizophrenia 4. anemia 5. + HSV PCR P 1. continue zosyn 2. start acyclovir 3. will follow up cultures Subjective ROS Limited/Unobtainable: Yes Allergies: Coded Allergies: PHENOTHIAZINES (Verified Allergy, Unknown, lock jaw anxiety, 06/09/18) Objective Vital Signs Last 24 Hour Vital Signs Date Time Temp Pulse Resp B/P (MAP) Pulse Ox O2 Delivery O2 Flow Rate FiO2 06/12/18 10:36 Room Air 21 06/12/18 10:36 Room Air 21 06/12/18 08:00 98.6 82 20 150/90 (110) 95 06/12/18 07:55 Nasal Cannula 2.0 06/12/18 06:51 Nasal Cannula 2.0 28 06/12/18 06:51 Nasal Cannula 2.0 28 06/12/18 06:51 88 20 Room Air 21 06/12/18 04:00 98.0 82 18 136/73 (94) 96 06/12/18 03:01 Nasal Cannula 2.0 28 06/12/18 03:01 Nasal Cannula 2.0 28 06/12/18 00:00 98.2 83 18 153/92 (112) 97 06/11/18 23:18 77 18 100 Nasal Cannula 2.0 28 06/11/18 23:10 71 18 98 Nasal Cannula 2.0 28 06/11/18 20:00 75 06/11/18 20:00 98.1 82 20 134/80 (98) 97 06/11/18 20:00 Nasal Cannula 2.0 06/11/18 19:49 78 18 99 Nasal Cannula 2.0 28 06/11/18 19:44 75 18 Nasal Cannula 2.0 28 06/11/18 19:42 75 18 97 Nasal Cannula 2.0 28 06/11/18 16:00 Nasal Cannula 2.0 06/11/18 16:00 97.5 97 19 129/88 (102) 98 06/11/18 16:00 84 06/11/18 15:00 Nasal Cannula 2.0 28 06/11/18 15:00 Nasal Cannula 2.0 28 06/11/18 14:32 97.7 78 20 149/87 (107) 97 06/11/18 12:00 Nasal Cannula 2.0 06/11/18 12:00 77 06/11/18 12:00 97.7 78 20 173/96 (121) 97 06/11/18 11:20 88 18 97 Nasal Cannula 2.0 28 06/11/18 11:10 78 18 97 Nasal Cannula 2.0 28 Height (Feet): 5 Height (Inches): 8.00 Weight (Pounds): 168 Respiratory/Chest: lungs clear Cardiovascular: normal rate, regular rhythm, no gallop/murmur Abdomen: soft, non tender Extremities: no edema Laboratory Tests Test 06/12/18 07:05 CSF Herpes Simplex II DNA (PCR) Pending Sodium Level 133 MMOL/L (136-145) L Potassium Level 3.0 MMOL/L (3.5-5.1) L Chloride Level 96 MMOL/L (98-107) L Carbon Dioxide Level 26 MMOL/L (21-32) Anion Gap 11 mmol/L (5-15) Blood Urea Nitrogen 8 mg/dL (7-18) Creatinine 1.1 MG/DL (0.55-1.30) Estimat Glomerular Filtration Rate mL/min (>60) Glucose Level 86 MG/DL (74-106) Calcium Level 9.1 MG/DL (8.5-10.1) Total Bilirubin 1.0 MG/DL (0.2-1.0) Aspartate Amino Transf (AST/SGOT) 100 U/L (15-37) H Alanine Aminotransferase (ALT/SGPT) 142 U/L (12-78) H Alkaline Phosphatase 212 U/L (46-116) H Total Creatine Kinase 95 U/L (26-308) Total Protein 7.5 G/DL (6.4-8.2) Albumin 2.1 G/DL (3.4-5.0) L Globulin 5.4 g/dL Albumin/Globulin Ratio 0.4 (1.0-2.7) L Free Thyroxine 1.15 NG/DL (0.76-1.46) Triiodothyronine (T3) Uptake Pending Herpes Simplex Virus I IgG Antibody Pending Herpes Simplex Virus I IgM Ab (IFA) Pending Herpes Simplex Virus II IgM Ab (IFA Pending Herpes Simplex Virus I DNA (PCR) Pending Current Medications Medications (Trade) Dose Ordered Sig/Magdalena Route PRN Reason Start Time Stop Time Status Last Admin Dose Admin Acetaminophen (Tylenol) 650 mg Q4H PRN ORAL Mild Pain (Pain Scale 1-3) 06/12/18 00:00 07/08/18 19:59 Acetaminophen (Tylenol) 650 mg Q4H PRN ORAL Fever 06/12/18 01:15 07/08/18 21:14 Acetaminophen (Tylenol) 650 mg Q4H PRN RECTAL FEVER 06/12/18 00:00 07/08/18 19:59 Acetaminophen (Tylenol) 650 mg Q4H PRN RECTAL Mild Pain (Pain Scale 1-3) 06/12/18 00:00 07/08/18 19:59 Albuterol/ Ipratropium (Albuterol/ Ipratropium) 3 ml Q4HRT HHN 06/12/18 03:00 06/14/18 14:59 Dextrose (Dextrose 50%) 25 ml Q30M PRN IV Hypoglycemia 06/11/18 23:45 07/08/18 21:14 Dextrose (Dextrose 50%) 50 ml Q30M PRN IV Hypoglycemia 06/11/18 23:45 07/08/18 21:14 Dextrose/ Electrolytes 1,000 ml @ 50 mls/hr Q20H IV 06/11/18 23:30 07/11/18 19:59 06/11/18 23:51 Docusate Sodium (Colace) 250 mg BID ORAL 06/12/18 09:00 07/09/18 08:59 06/12/18 09:24 Fluoxetine HCl (PROzac) 40 mg DAILY ORAL 06/12/18 09:00 07/09/18 08:59 06/12/18 09:29 Gabapentin (Neurontin) 300 mg BID ORAL 06/12/18 09:00 07/08/18 21:29 06/12/18 09:25 Gadobutrol (Gadavist) 7.5 mmol NOW PRN IV Radiology Procedure 06/12/18 19:30 06/15/18 19:17 Heparin Sodium (Porcine) (Heparin 5000 units/ml) 5,000 units EVERY 12 HOURS SUBQ 06/12/18 09:00 07/09/18 08:59 Mirtazapine (Remeron) 7.5 mg BEDTIME ORAL 06/12/18 21:00 07/09/18 20:59 Olanzapine (ZyPREXA Zydis) 10 mg BID ORAL 06/12/18 09:00 07/08/18 21:29 06/12/18 09:24 Ondansetron HCl (Zofran) 4 mg Q6H PRN IVP Nausea & Vomiting 06/12/18 01:30 07/08/18 19:29 Pantoprazole (Protonix) 40 mg DAILY ORAL 06/12/18 09:00 07/09/18 08:59 06/12/18 09:24 Piperacillin Sod/ Tazobactam Sod 3.375 gm/Sodium Chloride 100 ml @ 25 mls/hr Q8HR IVPB 06/12/18 06:00 06/16/18 07:59 06/12/18 06:16 Polyethylene Glycol (Miralax) 17 gm DAILYPRN PRN ORAL Constipation 06/12/18 19:30 07/08/18 19:29 Venlafaxine HCl (Effexor-XR) 225 mg DAILY ORAL 06/12/18 09:00 07/09/18 08:59 06/12/18 09:25 Piter Patel MD Jun 12, 2018 10:43
--- NOTE | 2018-06-12 12:41 | NUR ---
LIMITED MRCP COMPLETED.
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
--- NOTE | 2018-06-12 15:07 | NUR ---
ST NOTE: ATTEMPTED ST EVAL THIS AM. HOWEVER, PT WAS NPO FOR PROCEDURE. RE-ATTEMPTED IN PM, HOWEVER, PT IS AGITATED AND ASLEEP. WILL RE-ATTEMPT.
--- NOTE | 2018-06-12 15:20 | Diagnostic Imaging Report ---
Indication: Reason For Exam: ABN LABS Technique: Coronal and axial single shot fast spin-echo breath-hold, 2-D thick slab MRCP, AXIAL 2-D FIESTA fat saturated images were obtained of the abdomen. At the patient's request, no additional images were obtained. Comparison: Reference made to abdominal ultrasound 06/10/2018 Findings: Exam is extremely limited, essentially nondiagnostic due to insufficient number of sequences obtained, as well as considerable motion artifact on the sequences that are available. No definite gallstones. Bile ducts are nondilated. No definite filling defects are seen within the bile ducts. No gallbladder wall thickening or pericholecystic edema. The available images of the liver, spleen, pancreas, adrenals are grossly unremarkable. The left kidney demonstrates a 3 cm diameter parapelvic cyst. The left kidney demonstrates a 5.6 cm diameter cortical cyst. Incidentally noted is a large hiatal hernia. Impression: Extremely limited exam, as described, due to limited number of sequences obtained, patient motion artifact No evidence of gallstones, gallbladder wall thickening, or biliary ductal dilatation Findings as noted, including large hernia, bilateral renal cysts
--- NOTE | 2018-06-12 18:48 | General Progress Note ---
Assessment/Plan Problem List: (1) Gait abnormality ICD Codes: R26.9 - Unspecified abnormalities of gait and mobility SNOMED: 49403173 (2) Dehydration ICD Codes: E86.0 - Dehydration SNOMED: 15157471 (3) BENJAMIN (acute kidney injury) ICD Codes: N17.9 - Acute kidney failure, unspecified SNOMED: 22924005 (4) Iron deficiency anemia ICD Codes: D50.9 - Iron deficiency anemia, unspecified SNOMED: 27289484 (5) Pyelonephritis ICD Codes: N12 - Tubulo-interstitial nephritis, not specified as acute or chronic SNOMED: 71456243 (6) Septic shock ICD Codes: A41.9 - Sepsis, unspecified organism; R65.21 - Severe sepsis with septic shock SNOMED: 49431944 (7) Sepsis ICD Codes: A41.9 - Sepsis, unspecified organism SNOMED: 52791211 (8) Abnormal LFTs ICD Codes: R94.5 - Abnormal results of liver function studies SNOMED: 006214828 (9) Schizophrenia, paranoid ICD Codes: F20.0 - Paranoid schizophrenia SNOMED: 11668390 Assessment/Plan pyelo treated recently at [facility] e coli bacteremia. Elevated lft with normal ct and hida at [facility], concern for cbd stone /cholangitis vs recurrent pyelo. hypotension resolving with fluids. Anemia and transfusion indicated. Mild wheeze and atelectasis, hhn ordered. bp better. low albumin and edema. Need to mobilize , US and mrcp neg for biliary obstruct, lpsychosis worse resume prior doses zyprexa d/w consultants Subjective HEENT: Reports: no symptoms Cardiovascular: Reports: no symptoms Respiratory: Reports: no symptoms Gastrointestinal/Abdominal: Reports: poor appetite Genitourinary: Reports: incontinence Endocrine: Reports: no symptoms Hematologic/Lymphatic: Reports: no symptoms Allergies: Coded Allergies: PHENOTHIAZINES (Verified Allergy, Unknown, lock jaw anxiety, 06/09/18) Objective Last 24 Hour Vital Signs Date Time Temp Pulse Resp B/P (MAP) Pulse Ox O2 Delivery O2 Flow Rate FiO2 06/12/18 15:00 Room Air 21 06/12/18 15:00 Room Air 21 06/12/18 10:36 Room Air 21 06/12/18 10:36 Room Air 21 06/12/18 08:00 98.6 82 20 150/90 (110) 95 06/12/18 07:55 Nasal Cannula 2.0 06/12/18 06:51 Nasal Cannula 2.0 28 06/12/18 06:51 Nasal Cannula 2.0 28 06/12/18 06:51 88 20 Room Air 21 06/12/18 04:00 98.0 82 18 136/73 (94) 96 06/12/18 03:01 Nasal Cannula 2.0 28 06/12/18 03:01 Nasal Cannula 2.0 28 06/12/18 00:00 98.2 83 18 153/92 (112) 97 06/11/18 23:18 77 18 100 Nasal Cannula 2.0 28 06/11/18 23:10 71 18 98 Nasal Cannula 2.0 28 06/11/18 20:00 75 06/11/18 20:00 98.1 82 20 134/80 (98) 97 06/11/18 20:00 Nasal Cannula 2.0 06/11/18 19:49 78 18 99 Nasal Cannula 2.0 28 06/11/18 19:44 75 18 Nasal Cannula 2.0 28 06/11/18 19:42 75 18 97 Nasal Cannula 2.0 28 Intake and Output 06/11/18 06/12/18 19:00 07:00 Intake Total 1180 ml 525 ml Output Total 450 ml Balance 730 ml 525 ml Intake Oral 0 ml IV Total 680 ml 525 ml Other 500 ml Output Urine Total 450 ml # Bowel Movements 10 2 Laboratory Tests 06/12/18 07:05: CSF Herpes Simplex II DNA (PCR) [Pending], Sodium Level 133L, Potassium Level 3.0L, Chloride Level 96L, Carbon Dioxide Level 26, Anion Gap 11, Blood Urea Nitrogen 8, Creatinine 1.1, Estimat Glomerular Filtration Rate , Glucose Level 86, Calcium Level 9.1, Total Bilirubin 1.0, Aspartate Amino Transf (AST/SGOT) 100H, Alanine Aminotransferase (ALT/SGPT) 142H, Alkaline Phosphatase 212H, Total Creatine Kinase 95, Total Protein 7.5, Albumin 2.1L, Globulin 5.4, Albumin /Globulin Ratio 0.4L, Free Thyroxine 1.15, Triiodothyronine (T3) Uptake [Pending ], Herpes Simplex Virus I IgG Antibody [Pending], Herpes Simplex Virus I IgM Ab (IFA) [Pending], Herpes Simplex Virus II IgM Ab (IFA [Pending], Herpes Simplex Virus I DNA (PCR) [Pending] Height (Feet): 5 Height (Inches): 8.00 Weight (Pounds): 168 General Appearance: no apparent distress, alert EENT: normal ENT inspection Neck: non-tender, normal alignment Cardiovascular: normal rate, regular rhythm Respiratory/Chest: lungs clear, normal breath sounds Abdomen: non tender, soft Edema: trace edema Objective refused some meds some agitation Terry Short MD Jun 12, 2018 18:48
--- NOTE | 2018-06-12 18:50 | NUR ---
NURSE NOTES:SEEN BY DR. DEVI,UPDATED RE:PATIENTS ATTITUDE AND NON COMPLIANT TO CARE AND MEDS.ORDERS CARRIED OUT.
[2018-06-12] MEDS: D5 1/2NS w/KCl 40meq 1000ml 1,000 ML IV SCH (19:00)
[2018-06-12] MEDS ORDERED: Gadavist 7.5mMol/7.5ml vial IV PRN (19:30)
[2018-06-12] MEDS ORDERED: Miralax 17gm pkt ORAL PRN (19:30)
--- NOTE | 2018-06-12 19:45 | NUR ---
HAND-OFF: Report given to GIA PORTILLO RN.NO SIGNIFICANT CHANGE TO NEURO STATUS.CONFUSED AND NON COMPLIANT.SIDE RAILS UPX3,BED ALARM ON.
--- NOTE | 2018-06-12 19:50 | NUR ---
NURSE NOTES: Patient very agitated. Non compliant. Getting out of bed in and out without asking for assistance. Side rails up x3. Bed alarm on. Bed is locked and in the lowest position. Room light is on. Call light within reach. Removed all clutter inside patients room. Yelling and screaming. Refused IV insertion. VSS. Kept comfortable. RN sitting close to patients room.
[2018-06-12] MEDS ORDERED: OLANZapine 10mg tab ORAL SCH (21:00)
--- NOTE | 2018-06-12 21:15 | General Progress Note ---
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, ? herpetic hepatitis - leukocytosis Recommendations - repeat HSV titers, this time with PCR - pending - Acyclovir trial - follow LFT Subjective Allergies: Coded Allergies: PHENOTHIAZINES (Verified Allergy, Unknown, lock jaw anxiety, 06/09/18) Subjective Above noted MRI abd negative acyclovir started Objective Last 24 Hour Vital Signs Date Time Temp Pulse Resp B/P (MAP) Pulse Ox O2 Delivery O2 Flow Rate FiO2 06/12/18 19:48 Room Air 21 06/12/18 19:48 89 18 Room Air 21 06/12/18 19:48 Room Air 21 06/12/18 15:00 Room Air 06/12/18 15:00 Room Air 21 06/12/18 10:36 Room Air 21 06/12/18 10:36 Room Air 21 06/12/18 08:00 98.6 82 20 150/90 (110) 95 06/12/18 07:55 Nasal Cannula 2.0 06/12/18 06:51 Nasal Cannula 2.0 28 06/12/18 06:51 Nasal Cannula 2.0 28 06/12/18 06:51 88 20 Room Air 21 06/12/18 04:00 98.0 82 18 136/73 (94) 96 06/12/18 03:01 Nasal Cannula 2.0 28 06/12/18 03:01 Nasal Cannula 2.0 28 06/12/18 00:00 98.2 83 18 153/92 (112) 97 06/11/18 23:18 77 18 100 Nasal Cannula 2.0 28 06/11/18 23:10 71 18 98 Nasal Cannula 2.0 28 Intake and Output 06/11/18 06/12/18 19:00 07:00 Intake Total 1180 ml 525 ml Output Total 450 ml Balance 730 ml 525 ml Intake Oral 0 ml IV Total 680 ml 525 ml Other 500 ml Output Urine Total 450 ml # Bowel Movements 10 2 Laboratory Tests 06/12/18 07:05: CSF Herpes Simplex II DNA (PCR) [Pending], Sodium Level 133L, Potassium Level 3.0L, Chloride Level 96L, Carbon Dioxide Level 26, Anion Gap 11, Blood Urea Nitrogen 8, Creatinine 1.1, Estimat Glomerular Filtration Rate , Glucose Level 86, Calcium Level 9.1, Total Bilirubin 1.0, Aspartate Amino Transf (AST/SGOT) 100H, Alanine Aminotransferase (ALT/SGPT) 142H, Alkaline Phosphatase 212H, Total Creatine Kinase 95, Total Protein 7.5, Albumin 2.1L, Globulin 5.4, Albumin /Globulin Ratio 0.4L, Free Thyroxine 1.15, Triiodothyronine (T3) Uptake [Pending ], Herpes Simplex Virus I IgG Antibody [Pending], Herpes Simplex Virus I IgM Ab (IFA) [Pending], Herpes Simplex Virus II IgM Ab (IFA [Pending], Herpes Simplex Virus I DNA (PCR) [Pending] Height (Feet): 5 Height (Inches): 8.00 Weight (Pounds): 168 Objective WDWN NCAT supple CTA RRR abd soft ND NT no edema nonfocal Cesar Mcgill MD Jun 12, 2018 21:15
--- NOTE | 2018-06-13 01:00 | Progress Note ---
CARDIOLOGY PROGRESS NOTE DATE: 06/12/2018 SUBJECTIVE: The patient remains on antimicrobials. He is more agitated and confused. OBJECTIVE: VITAL SIGNS: Blood pressure is stable in the range of 150/90, heart rate 80s, and respiratory rate 18. Afebrile. Oxygen saturation 96% to 99% on room air. LUNGS: Good breath sounds with few rhonchi. CARDIAC: Regular with normal S1, S2 with a fourth heart sound. ABDOMEN: Soft. EXTREMITIES: With 1+ dependent edema. LABORATORY DATA: Sodium is 133, potassium 3, bicarb 26, BUN 8, and creatinine 1.1. AST, ALT 100/142. Albumin 2.1. IMPRESSION: 1. Hypokalemia. 2. Recovered shock with sepsis, probable biliary sepsis. 3. Severe protein-calorie malnutrition with third spacing. 4. Possible herpetic hepatitis based on herpes titers. PLAN: 1. Now on trial of antiviral therapy. 2. Continue hydration. 3. Antimicrobials. 4. Adjust intravenous fluids. 5. DVT and stress ulcer prophylaxes. Fer Hernandez M.D. DR: RICA JOB#: [id number] CC:
--- NOTE | 2018-06-13 01:30 | Cardiology Report ---
APPROVED REPORT EKG Measurement Heart [id number] CT 176P-19 [id number] Normal sinus rhythm Left axis deviation Abnormal ECG
--- NOTE | 2018-06-13 01:32 | Cardiology Report ---
APPROVED REPORT EKG Measurement Heart [id number] [place] 140P37 [id number] Normal sinus rhythm Prolonged QT Abnormal ECG
[2018-06-13] MEDS: Albuterol/Ipratropium 3ml neb HHN SCH ×4 (03:00→15:35)
[2018-06-13 04:00] VITALS: BP 137/74
--- NOTE | 2018-06-13 07:22 | NUR ---
Received patient from Jeremiah ZAPATA, patient is resting in bed up and eating breakfast, no distress noted, bed is locked and in lowest position, call light within reach, will continue to monitor.
[2018-06-13 08:00] VITALS: BP 144/93
[2018-06-13] MEDS: D5 1/2NS w/KCl 40meq 1000ml 1,000 ML IV SCH (08:07)
[2018-06-13] MEDS: ZyPREXA Zydis 10mg tab ORAL SCH (09:28)
[2018-06-13] MEDS: Docusate 250mg cap ORAL SCH (09:28)
[2018-06-13] MEDS: Venlafaxine XR 75mg cap ORAL SCH (09:29)
[2018-06-13] MEDS: Heparin 5000 units/ml inj SUBQ SCH (09:30)
--- NOTE | 2018-06-13 09:46 | NUR ---
ST NOTE: BEDSIDE SWALLOW EVAL RECEIVED BEDSIDE SWALLOW EVAL ORDER CHART REVIEWED PRIOR THE EVALUATION PT IS A 83-YEAR-OLD MALE WHO WAS ADMITTED DUE TO ENCEPHALOPATHY AND DEHYDRATION. DYSPHAGIA RISK FACTORS: ENCEPHALOPATHY, DEHYDRATION, PSYCH(SCHIZOPHRENIA), H/O SMOKING, LARGE HIATAL HERNIA, REYES'S ESOPHAGITIS, CARDIAC DISORDER. PER CXR: 06/09/18: SUBSEGMENTAL ATELECTASIS IN BILATERAL LUNG BASES PLOF: PT RESIDES IN [facility]. PREVIOUS DIET IS UNKNOWN. CURRENT STATUS: PT SEEN AT BEDSIDE IN AM. ALERT, REQUIRED MAX CUES TO PARTICIPATE, PT VERBAL, SEEMS CONFUSED, ABLE TO FOLLOW SIMPLE DIRECTIONS. NO RESP DISTRESS WAS NOTED. ATTEMPTED TO GIVE PO TRIAL, HOWEVER, PT REFUSED. PER RN FROM YESTERDAY, PT WAS ABLE TO TAKE PILLS WITH THIN LIQUIDS WITHOUT ANY COUGHING OR CHOKING EPISODE. GIVEN PO TRIALS: THIN(STRAW) ONLY. PT REFUSED BREAKFAST TRAY. INITIAL IMPRESSION: MISSING BOTTOM MOLAR TEETH. GOOD ORAL TRANSIT TIME AND OROPHARYNGEAL TRANSIT TIME FAIR TO GOOD LARYNGEAL ELEVATION, NO OVERT S/S OF ASPIRATION. PT REFUSED FURTHER PO TRIALS. RECOMMENDATIONS: 1. CONTINUE REGULAR WITH THIN LIQUIDS DIET 2. ASPIRATION/REFLUX PRECAUTIONS 3. VIDEOSWALLOW STUDY IF NEEDED, ALSO ONLY IF PT IS WILLING TO PARTICIPATE. ( PT'S LUNGS ARE NOT CLEAR). D/W RNROSY. POSTED ASPIRATION PRECAUTIONS SIGN.
[2018-06-13] MEDS ORDERED: POTASSIUM CHLO20 ME1 ORAL (11:32)
[2018-06-13] MEDS ORDERED: ACYCLOVIR800 MG ORAL (11:32)
[2018-06-13] MEDS ORDERED: PROTONIX40 MG ORAL (11:32)
[2018-06-13] MEDS ORDERED: ZYPREXA ZYDIS10 MG ORAL (11:32)
[2018-06-13] MEDS ORDERED: NEURONTIN300 MG ORAL (11:32)
[2018-06-13] MEDS ORDERED: CEPHALEXIN500 MG ORAL (11:32)
[2018-06-13] MEDS ORDERED: ZYPREXA10 MG ORAL (11:32)
[2018-06-13] MEDS ORDERED: EFFEXOR-XR75 MG ORAL (11:32)
[2018-06-13 12:00] VITALS: BP 132/86
--- NOTE | 2018-06-13 12:58 | NUR ---
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
--- NOTE | 2018-06-13 14:30 | NUR ---
discharge plan patient will discharge to [facility] ROOM [address] SKILLED T: [phone] FOR NURSE TO NURSE REPORT [facility] HAS BEEN ARRANGED
--- NOTE | 2018-06-13 15:08 | NUR ---
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
[2018-06-13 16:00] VITALS: BP 130/82
--- NOTE | 2018-06-13 17:03 | NUR ---
NURSE NOTES: Patient discharged per doctor order, Belongings reviewed, no discrepancies noted, ID band removed, report given to ambulance personnel, no distress noted, transferred out of hospital via ambulance.
[2018-06-13] MEDS ORDERED: NS 275ml ONE (17:11)
[2018-06-13] MEDS ORDERED: Tubing IV Secondary IV ONE (17:11)
--- NOTE | 2018-06-13 18:35 | General Progress Note ---
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, ? herpetic hepatitis - leukocytosis Recommendations - repeat HSV titers, this time with PCR - pending - Acyclovir trial - follow LFT Subjective Allergies: Coded Allergies: PHENOTHIAZINES (Verified Allergy, Unknown, lock jaw anxiety, 06/09/18) Subjective Above noted MRI abd negative acyclovir started for d/c tonight Objective Last 24 Hour Vital Signs Date Time Temp Pulse Resp B/P (MAP) Pulse Ox O2 Delivery O2 Flow Rate FiO2 06/13/18 16:00 98.5 87 18 130/82 (98) 96 06/13/18 15:36 Room Air 06/13/18 15:35 Room Air 06/13/18 12:00 98.3 83 18 132/86 (101) 95 06/13/18 11:32 Room Air 06/13/18 11:31 Room Air 06/13/18 08:30 Nasal Cannula 2.0 06/13/18 08:00 98.0 68 18 144/93 (110) 95 06/13/18 07:21 Room Air 06/13/18 07:21 Room Air 06/13/18 04:00 97.8 79 21 137/74 (95) 96 06/13/18 03:28 Room Air 06/13/18 03:28 Room Air 06/12/18 23:00 Room Air 21 06/12/18 23:00 Room Air 21 06/12/18 21:00 Nasal Cannula 2.0 06/12/18 19:48 Room Air 21 06/12/18 19:48 89 18 Room Air 21 06/12/18 19:48 Room Air 21 Intake and Output 06/12/18 06/13/18 18:59 06:59 Intake Total 120 ml 600 ml Balance 120 ml 600 ml Intake Oral 120 ml 600 ml # Voids 4 2 # Bowel Movements 4 Height (Feet): 5 Height (Inches): 8.00 Weight (Pounds): 152 Objective WDWN NCAT supple CTA RRR abd soft ND NT no edema nonfocal Cesar Mcgill MD Jun 13, 2018 18:35
--- NOTE | 2018-06-14 00:31 | Progress Note ---
DATE: 06/13/2018 CARDIOLOGY PROGRESS NOTE SUBJECTIVE: The patient is in no distress. He is to be discharged today. MRI is negative. OBJECTIVE: VITAL SIGNS: Stable. Blood pressure 132/86, heart rate 82, and respiratory rate 18. NECK: Supple. LUNGS: Clear. CARDIAC: Regular. ABDOMEN: Soft. EXTREMITIES: No edema. IMPRESSION AND PLAN: 1. Status post septic shock, now recovered. 2. Hemodynamically stable. 3. No signs of active infection. 4. No additional cardiovascular interventions planned. Fer Hernandez M.D. DR: EDDY JOB#: [id number] CC:
--- NOTE | 2018-06-14 03:01 | Discharge Summary ---
DATE OF ADMISSION: 06/08/2018 DATE OF DISCHARGE: 06/13/2018 PERTINENT HISTORY: The patient is an 83-year-old man admitted with hypotension and possible septic shock. He recently had E. coli bacteremia and pyelonephritis at [facility] and was discharged a few days ago. He presented with hypotension and weakness, but no fever. PERTINENT PHYSICAL FINDINGS: See my dictated History and Physical. GENERAL: The patient is alert and weak, was in Trendelenburg on my arrival with a blood pressure 75 to 85 systolic. HEENT: Oral mucosa slightly dry. NECK: No adenopathy. LUNGS: Clear. HEART: Regular rhythm. No murmur. ABDOMEN: Soft. No tenderness. EXTREMITIES: No edema. SKIN: Healing abrasion right leg. NEUROLOGIC: Alert and responsive. No focal findings. COURSE IN THE HOSPITAL: The patient was hydrated and put on broad-spectrum antibiotics. He had elevated liver enzymes that were noted on a prior admission and severe leukocytosis. His blood pressure returned normal with hydration as did his acute kidney injury, which is due to dehydration. He was continued on Zosyn. His leukocytosis trended to better. He had persistent elevated liver enzymes and had a negative abdominal ultrasound and a negative MRCP for any biliary obstruction although the quality of the MRCP was limited by movement. He had no abdominal pain and no fevers during this admission. 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 The patient improved with the hydration and antibiotic therapy. He was incontinent of urine. He had episodes of confusion and agitated behavior and was maintained on his medicines for schizophrenia. On the day of discharge, his vital signs were stable. Lungs, clear. Heart, regular rhythm. Abdomen, soft and nontender. Extremities, trace edema. There was no focal neurologic deficit. He was discharged to senior care facility in stable condition. FINAL DIAGNOSES: 1. Septic shock. 2. Dehydration. 3. Acute kidney injury. 4. Pyelonephritis, partially treated. 5. Elevated liver enzymes with no evidence of biliary obstruction. 6. Iron-deficiency anemia. 7. IgM lambda monoclonal gammopathy. 8. Schizophrenia. 9. Generalized weakness. 10. Gait disorder. 11. Urinary incontinence. 12. History of hiatal hernia. 13. History of gastritis. DISCHARGE DISPOSITION: To the [facility] on a regular diet. MEDICATIONS: Per the discharge medication list. FOLLOWUP: Follow up by Dr. Short. Terry Short M.D. DR: CARA JOB#: [id number] CC:
== END 2018-06-13 17:12 | DRG 871 ==
LOC: EDBD 17:09 → EMR 17:30 → EDBEDREQ 17:36 → ICU 20:10 → EDBEDREQ 20:25 → EDBEDREQSVC 20:48 → EDBEDREQ 06-09 01:09 → ICU 06-09 03:27 → 2W 06-09 19:22 → 3E 06-11 23:29
PROC: 30233N1 Transfusion of Nonautologous Red Blood Cells into Peripheral Vein, Percutaneous Approach (ICD-10-PCS; principal; 2018-06-09)
DX: A41.9 Sepsis, unspecified organism (principal); R65.21 Severe sepsis with septic shock; J18.9 Pneumonia, unspecified organism; E43 Unspecified severe protein-calorie malnutrition; N17.9 Acute kidney failure, unspecified; N12 Tubulo-interstitial nephritis, not specified as acute or chronic; K83.09 Other cholangitis; E86.0 Dehydration; R74.8 Abnormal levels of other serum enzymes; D50.9 Iron deficiency anemia, unspecified; D47.2 Monoclonal gammopathy; F20.9 Schizophrenia, unspecified; R53.1 Weakness; R26.9 Unspecified abnormalities of gait and mobility; R32 Unspecified urinary incontinence; K44.9 Diaphragmatic hernia without obstruction or gangrene; K29.70 Gastritis, unspecified, without bleeding; Z88.8 Allergy status to other drugs, medicaments and biological substances; I51.3 Intracardiac thrombosis, not elsewhere classified; E87.6 Hypokalemia
CPT/HCPCS: 36415; 70450; 71045; 74181; 76700; 80053; 81003; 82270; 82378; 82533; 82550; 82553; 82607; 82746; 82784; 83540; 83550; 83605; 83690; 83880; 84100; 84439; 84443; 84480; 84481; 84484; 85007; 85025; 85610; 86334; 86695; 86705; 86709; 86803; 86850; 86900; 86901; 86920; 87040; 87081; 87340; 87529; 93005; 93306; 94640; 94664; 96361; 96365; 96367; 99291; J7620; J8499

== ENCOUNTER 2018-09-27 09:41 | Day surgery (SDC) | payer MEDICARE ==
[~2018-09-27] VITALS: Ht 165.1 cm; Wt 64.9 kg
[2018-09-27] VITALS (9 sets, daily range): BP systolic 142–168; BP diastolic 75–84
[~2018-09-27 09:41] MED LIST: ACETAMINOPHEN325 M1 ORAL; ACYCLOVIR800 MG ORAL; ATORVASTATIN CA80 MG ORAL; BANOPHEN25 MG PO; BUSPIRONE HCL15 MG ORAL; CEPHALEXIN500 MG ORAL; CLOTRIMAZOLE15 GM TOPIC; DAILY VITE1 EACH ORAL; DOCUSATE SODIU250 MG ORAL; EFFEXOR-XR75 MG ORAL; FLUOXETINE HCL40 MG ORAL; GABAPENTIN100 MG ORAL; LR 1000ml 1,000 ML IVLG SCH; MINTOX SUSPENS355 ML PO; MIRTAZAPINE15 M3 ORAL; NEURONTIN300 MG ORAL; OMEPRAZOLE40 M1 ORAL; POTASSIUM CHLO20 ME1 ORAL; PROTONIX40 MG ORAL; SINGULAIR10 MG ORAL; TRIAMCINOLONE A15 G2 TP; TUSSIN DM CLEA118 M1 PO; VENLAFAXINE HC150 MG ORAL; VENLAFAXINE HCL75 MG ORAL; ZYPREXA ZYDIS10 MG ORAL; ZYPREXA10 MG ORAL
[2018-09-27] MEDS ORDERED: DiphenhydrAMINE 50mg/ml Inj IVP PRN (10:45)
[2018-09-27] MEDS ORDERED: Midazolam 2mg/2ml Inj IVP PRN (10:45)
[2018-09-27] MEDS ORDERED: fentaNYL 100 mcg/2 mL IV PRN (10:45)
[2018-09-27] MEDS ORDERED: Atropine Inj 1mg/10ml Syr IV PRN (10:45)
--- NOTE | 2018-09-27 10:51 | Anethesia Preoperative Eval ---
Anesthesia Pre-op PMH/ROS General Date of Evaluation: Sep 27, 2018 Time of Evaluation: 10:47 Anesthesiologist: brayan ASA Score: ASA 4 Mallampati Score Class I : Soft palate, uvula, fauces, pillars visible Class II: Soft palate, uvula, fauces visible Class III: Soft palate, base of uvula visible Class IV: Only hard plate visible Mallampati Classification: Class II Surgeon: jc Diagnosis: gerd Surgical Procedure: egd Anesthesia History: none Social History: smoking - nonsmoker Family History: no anesthesia problems Allergies: Coded Allergies: PHENOTHIAZINES (Verified Allergy, Unknown, lock jaw anxiety, 09/27/18) Medications: see eMAR Patient NPO?: Yes Past Medical History Gastrointestinal/Genitourinary: Reports: other - pyelonephritis, ajki, abnl lfts Neurologic/Psychiatric: Reports: other - ams,schizophrenia Hematology/Immune: Reports: anemia, other - sepsis, septic shock, Anesthesia Pre-op Phys. Exam Physician Exam Last Vital Signs Date Time Temp Pulse Resp B/P (MAP) Pulse Ox O2 Delivery O2 Flow Rate FiO2 09/27/18 10:30 97.7 55 18 166/82 98 Room Air Constitutional: NAD Neurologic: CN 2-12 intact Cardiovascular: RRR Respiratory: CTA Gastrointestinal: S/NT/ND Airway Exam Mallampati Score: Class II MO: limited Neck: decreased rom ROM: limited Anesthesia Pre-op A/P Risk Assessment & Plan Assessment: asa4 Plan: mac Status Change Before Surgery: No Pre-Antibiotics Drug: Janeth Almanza MD Sep 27, 2018 10:51
[2018-09-27] MEDS ORDERED: Propofol 200mg/20ml IV ONE (11:00)
[2018-09-27] MEDS ORDERED: Lidocaine 1% MPF 10mg/ml 5ml ONE (11:00)
[2018-09-27] MEDS ORDERED: LR 1000ml ONE (11:00)
[2018-09-27] MEDS ORDERED: METOPROLOL TART25 MG ORAL (11:15)
[2018-09-27] MEDS ORDERED: CULTURELLE1 EAC1 PO (11:15)
[2018-09-27] MEDS ORDERED: ZINC SULFATE220 M1 ORAL (11:15)
[2018-09-27] MEDS ORDERED: MIRTAZAPINE15 MG ORAL (11:15)
[2018-09-27] MEDS ORDERED: VITAMIN C250 MG ORAL (11:15)
[2018-09-27] MEDS ORDERED: FAMOTIDINE20 MG ORAL (11:15)
[2018-09-27] MEDS ORDERED: ZYPREXA10 MG ORAL (11:15)
--- NOTE | 2018-09-27 11:16 | Pre-Procedure Note/Attestation ---
Pre-Procedure Note/Attestation Complete Prior to Procedure Planned Procedure: not applicable Procedure Narrative: EGD/Bx Indications for Procedure Pre-Operative Diagnosis: GERD, Ulcer, Barretts Attestation I attest that I discussed the nature of the procedure; its benefits; risks and complications; and alternatives (and the risks and benefits of such alternatives ), prior to the procedure, with the patient (or the patient's legal sales representative sales manager). I attest that, if there was a reasonable possibility of needing a blood transfusion, the patient (or the patient's legal sales representative sales manager) was given the [facility] standardized written summary, pursuant to the [place] Blood Safety Act ([place] Health and Safety Code # 1645, as amended). I attest that I re-evaluated the patient just prior to the surgery and that there has been no change in the patient's H&P, except as documented below: Cesar Mcgill MD Sep 27, 2018 11:16
--- NOTE | 2018-09-27 11:16 | Short Stay Surgery H&P ---
History of Present Illness History of Present Illness Chief Complaint see typed H&P HPI Abraham Palmer is a 83 year old male who was admitted on for GERD Patient History Allergies: Coded Allergies: PHENOTHIAZINES (Verified Allergy, Unknown, lock jaw anxiety, 09/27/18) Medication History Scheduled Ascorbic Acid* (Vitamin C*), 250 MG ORAL DAILY, (Reported) Docusate Sodium* (Docusate Sodium*), 250 MG ORAL TWICE A DAY, (Reported) Famotidine (Famotidine), 20 MG ORAL BID, (Reported) Gabapentin (Neurontin), 300 MG ORAL BID Lactobacillus Rhamnosus Gg (Culturelle), 1 EACH PO BID, (Reported) Metoprolol Tartrate* (Metoprolol Tartrate*), 25 MG ORAL DAILY, (Reported) Mirtazapine* (Remeron*), 15 MG ORAL BEDTIME, (Reported) Montelukast Sodium* (Singulair*), 10 MG ORAL DAILY, (Reported) Multivitamin (Daily Sameer), 1 TAB ORAL DAILY, (Reported) Olanzapine* (Zyprexa*), 20 MG ORAL DAILY, (Reported) Pantoprazole* (Protonix*), 40 MG ORAL DAILY Zinc Sulfate (Zinc Sulfate*), 220 MG ORAL DAILY, (Reported) Scheduled PRN Acetaminophen* (Acetaminophen 325MG Tablet*), 325 MG ORAL Q4H PRN for Mild Pain/ Temp > 100.5, (Reported) Discontinued Medications Acyclovir* (Zovirax*), 800 MG ORAL EVERY 8 HOURS Discontinued Reason: Pt stopped taking med Cephalexin* (Keflex*), 500 MG ORAL EVERY 6 HOURS Discontinued Reason: Pt stopped taking med Fluoxetine Hcl* (Fluoxetine Hcl*), 40 MG ORAL DAILY, (Reported) Discontinued Reason: Pt stopped taking med Guaifenesin/Dextromethorphan (Tussin Dm Clear Syrup), 118 ML PO, (Reported) Discontinued Reason: Pt stopped taking med Mag Hydrox/Al Hydrox/Simeth (Mintox Suspension), 355 ML PO, (Reported) Discontinued Reason: Pt stopped taking med Mirtazapine* (Mirtazapine*), 15 MG ORAL BEDTIME, (Reported) Discontinued Reason: Pt stopped taking med Omeprazole (Omeprazole), 40 MG ORAL DAILY, (Reported) Discontinued Reason: Pt stopped taking med Potassium Chloride* (K-Dur*), 20 MEQ ORAL TWICE A DAY Discontinued Reason: Pt stopped taking med Triamcinolone Acetonide (Triamcinolone Acetonide), 15 GM TP, (Reported) Discontinued Reason: Pt stopped taking med Venlafaxine HCl (Effexor Xr), 225 MG ORAL DAILY Discontinued Reason: Pt stopped taking med Physical Exam Vital Signs Last Vital Signs Date Time Temp Pulse Resp B/P (MAP) Pulse Ox O2 Delivery O2 Flow Rate FiO2 09/27/18 11:03 Room Air 09/27/18 10:30 97.7 55 18 166/82 98 Plan Attestation Are the patient's medical conditions optimized for surgery? Cesar Mcgill MD Sep 27, 2018 11:16
--- NOTE | 2018-09-27 11:51 | Immediate Post-Op Evaluation ---
Immediate Post-Op Evalulation Immediate Post-Op Evalulation Procedure: egd w/bx Date of Evaluation: Sep 27, 2018 Time of Evaluation: 11:51 IV Fluids: 400ml lr Blood Products: none Estimated Blood Loss: negligible Blood Pressure Systolic: 137 Blood Pressure Diastolic: 78 Pulse Rate: 52 Respiratory Rate: 18 O2 Sat by Pulse Oximetry: 100 Temperature (Fahrenheit): 97.0 Pain Score (1-10): 0 Nausea: No Vomiting: No Complications none Patient Status: awake, reacts, patent Hydration Status: adequate Drug: Janeth Almanza MD Sep 27, 2018 11:51
--- NOTE | 2018-09-27 11:54 | 48 Hour Post Anesthesia Eval ---
Post Anesthesia Evaluation Procedure: egd w/bx Date of Evaluation: Sep 27, 2018 Time of Evaluation: 11:53 Blood Pressure Systolic: 140 0: 82 Pulse Rate: 54 Respiratory Rate: 18 Temperature (Fahrenheit): 97.0 O2 Sat by Pulse Oximetry: 100 Airway: patent Nausea: No Vomiting: No Pain Intensity: 0 Hydration Status: adequate Cardiopulmonary Status: stable Mental Status/LOC: patient returned to baseline Post-Anesthesia Complications: none Follow-up care needed: N/A Janeth Jimenez MD Sep 27, 2018 11:54
--- NOTE | 2018-09-27 21:36 | Endoscopy Procedure Note ---
Endoscopy Procedure Note General Indication for Procedure: Esoph ulcer Procedures Performed: EGD Operative Findings/Diagnosis: baretts and HH Specimen: none Pt Tolerated Procedure Well: Yes Estimated Blood Loss: none Anesthesia Anesthesiologist: see attached Anesthesia: MAC Medications Medication Given: see anesthesia record Inserted Devices Implant(s) used?: No GI Core Measures 50 yrs or older w/o bx or poly: Not Applicable 10yrs. F/U recommended: Not Applicable If not recommended, why?: Cesar Mcgill MD Sep 27, 2018 21:36
--- NOTE | 2018-09-27 21:37 | Brief Operative Note ---
Immediate Post Operative Note Operative Note Chief Complaint: JENNIFER Pre-op Diagnosis: GERD, Ulcer, Barretts Procedure: EGD bx Post-op Diagnosis: GERD Post-op Diagnosis: same as pre-op Surgeon: jc Anesthesiologist: see report Anesthesia: MAC Specimen: yes Complications: none Condition: stable Fluids: see anesthesia Estimated Blood Loss: none Drains: none Implant(s) used?: No Cesar Mcgill MD Sep 27, 2018 21:37
--- NOTE | 2018-09-28 04:00 | Procedure Note ---
DATE OF PROCEDURE: 09/27/2018 PROCEDURE: Upper gastrointestinal endoscopy with biopsy. SURGEON: Cesar Mcgill M.D. ANESTHESIA: Please see the separate anesthesiologist notes for details. 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 POST-ENDOSCOPIC DIAGNOSES: 1. 6 cm segment of Alexander's esophagus. 2. Hiatal hernia. 3. Healed previously seen esophageal ulcers. DESCRIPTION OF PROCEDURE: The procedure, its risks, indications, alternatives, and possible complications were explained to the patient's sister and informed consent was obtained. The patient was then sedated. A diagnostic upper endoscope was introduced through the oropharynx and advanced to the duodenum. The mucosa was examined carefully. Examination showed a 7 cm hiatal hernia and a long segment of Alexander's extending from 33 to 27 cm re. Multiple biopsies were obtained at multiple levels, which were sent to pathology for review. The patient was sent to recovery in good condition. COMPLICATIONS: None. RECOMMENDATIONS: 1. Continue twice daily proton pump inhibitor on a half-way basis. 2. Reflux precautions. 3. Follow up biopsy results. 4. Outpatient followup. Cesar Mcgill M.D. DR: Lane JOB#: [id number] CC: ADILSON
== END 2018-09-27 13:30 | disposition home or self-care (01) ==
LOC: GAS 09:41
DX: K21.9 Gastro-esophageal reflux disease without esophagitis (principal); K22.70 Barrett's esophagus without dysplasia; K44.9 Diaphragmatic hernia without obstruction or gangrene; Z79.899 Other long term (current) drug therapy; Z88.8 Allergy status to other drugs, medicaments and biological substances; F20.9 Schizophrenia, unspecified
CPT/HCPCS: 43239; J2704; 94003; 94150